=== PATIENT | female | born 1970 | race Hispanic/Latino ===

== ENCOUNTER 2018-01-12 20:09 | Emergency (ER) | payer MEDICAID ==
[~2018-01-12 20:09] MED LIST: DICL2100G TP; ESOM40CA PO; HYDR25TA PO; INSU300I SQ; LEVO25TA54 PO; LEVO500T2 PO; METR500T PO; NYST15OI TP; SAXA1TBM PO; SIMV40TA59 PO; TYL3 PO; [UNRECOGNIZED DRUG - CODE] IH
[2018-01-12 20:29] LABS: BASOPHILS % (AUTO) 1.2 % (0.0-5.0); HEMATOCRIT 44.4 % (36-48); LYMPHOCYTES % (AUTO) 34.5 % (21.0-51.0); MEAN CORPUSCULAR HEMOGLOBIN 30.6 pg (27.0-33.0); MEAN CORPUSCULAR HGB CONC 34.6 g/dL (32.0-36.0); MEAN CORPUSCULAR VOLUME 88.5 fL (79-99); MONOCYTES % (AUTO) 10.4 % (3.0-13.0); NEUTROPHILS % (AUTO) 51.9 % (40.0-77.0); PLATELET COUNT (AUTO) 278 K/uL (130-400); RED BLOOD CELL COUNT(AUTO) 5.02 MIL/uL (4.00-5.50); RED CELL DISTRIBUTION WIDTH 12.8 % (11.0-15.5)
[2018-01-12 20:32] LABS: APPEARANCE,URINE Clear (CLEAR); BILIRUBIN,URINE Negative (NEGATIVE); COLOR,URINE Yellow (YELLOW); GLUCOSE, URINE (UA) >=1000 mg/dL (NEGATIVE); KETONES,URINE Negative (NEGATIVE); LEUKOCYTE ESTERASE ,URINE Negative (NEGATIVE); NITRATE,URINE Negative (NEGATIVE); OCCULT BLOOD,URINE Trace (NEGATIVE); PH,URINE 6.5 (5.0-8.0); PROTEIN,URINE Negative (NEGATIVE)
[2018-01-12 20:41] LABS: INR 0.95 (0.85-1.15); PARTIAL THROMBOPLASTIN TIME 24.7 SEC (26.3-35.5)
[2018-01-12 20:52] LABS: ALANINE AMINOTRANSFERASE 43 U/L (12-78); ALBUMIN 3.1 g/dL (3.5-5.0); ASPARTATE AMINOTRANSFERASE 44 U/L (10-37); BILIRUBIN,TOTAL 0.4 mg/dL (0.2-1.0); CARBON DIOXIDE 27 mmol/L (21-32); CHLORIDE 97 mmol/L (101-111); CREATINE KINASE MB < 0.5 ng/mL (0.5-3.6); CREATINE KINASE, TOTAL 49 U/L (21-232); GLOMERULAR FILTR. RATE CALC 64 mL/min (>60); POTASSIUM 4.1 mmol/L (3.5-5.1); SODIUM SERUM 133 mmol/L (136-145); TOTAL PROTEIN, SERUM 8.2 g/dL (6.0-8.3); UREA NITROGEN, BLOOD 10 mg/dL (7-18)
[2018-01-12 20:56] LABS: GLUCOSE,RANDOM 537 mg/dL (70-105)
[2018-01-12] MEDS ORDERED: SODIUM CHLORIDE 0.9% 1000ML 1,000 ML IV ONE (21:17)
[2018-01-12] MEDS ORDERED: INSULIN HUMULIN R 100 UNIT/ML 3ML ONE (21:19)
[2018-01-12 21:25] LABS: BACTERIA,URINE Rare /HPF (None Seen); RBC,URINE None Seen /HPF (0-1)
[2018-01-12] MEDS ORDERED: BENZONATATE 100 MG CAPSULE PO ONE (23:17)
== END 2018-01-12 23:42 | disposition home or self-care (01) ==
LOC: EDH 20:09
DX: J20.9 Acute bronchitis, unspecified (principal); R07.89 Other chest pain; J45.909 Unspecified asthma, uncomplicated; E78.5 Hyperlipidemia, unspecified; I10 Essential (primary) hypertension; E07.9 Disorder of thyroid, unspecified; E11.9 Type 2 diabetes mellitus without complications; Z88.0 Allergy status to penicillin; Z79.4 Long term (current) use of insulin
CPT/HCPCS: 36415; 71046; 80053; 81001; 82550; 82553; 82948; 84484 ×2; 85025; 85610; 85730; 93005 ×2; 96360; 96361; 96374; 99285; J1815; J7030

== ENCOUNTER 2018-12-29 14:37 | Emergency (ER) | payer MEDICAID ==
[2018-12-29 15:08] LABS: BASOPHILS % (AUTO) 0.8 % (0.0-5.0); EOSINOPHILS % (AUTO) 0.4 % (0.0-8.0); HEMATOCRIT 43.4 % (36-48); LYMPHOCYTES % (AUTO) 20.9 % (21.0-51.0); MEAN CORPUSCULAR HEMOGLOBIN 30.3 pg (27.0-33.0); MEAN CORPUSCULAR HGB CONC 34.1 g/dL (32.0-36.0); MONOCYTES % (AUTO) 6.3 % (3.0-13.0); NEUTROPHILS % (AUTO) 71.6 % (40.0-77.0); PLATELET COUNT (AUTO) 258 K/uL (130-400); RED BLOOD CELL COUNT(AUTO) 4.88 MIL/uL (4.00-5.50); RED CELL DISTRIBUTION WIDTH 12.9 % (11.0-15.5)
[2018-12-29 15:13] LABS: APPEARANCE,URINE CLOUDY (CLEAR); BILIRUBIN,URINE NEGATIVE (NEGATIVE); COLOR,URINE YELLOW (YELLOW); GLUCOSE, URINE (UA) >=1000 mg/dL (NEGATIVE); KETONES,URINE NEGATIVE (NEGATIVE); LEUKOCYTE ESTERASE ,URINE SMALL (NEGATIVE); NITRATE,URINE NEGATIVE (NEGATIVE); OCCULT BLOOD,URINE TRACE-INTACT (NEGATIVE); PROTEIN,URINE NEGATIVE (NEGATIVE); UROBILINOGEN,URINE 0.2 mg/dL (0.2-1.0)
[2018-12-29 15:25] LABS: ALBUMIN 3.3 g/dL (3.5-5.0); BILIRUBIN,TOTAL 0.5 mg/dL (0.2-1.0); POTASSIUM 3.8 mmol/L (3.5-5.1); TOTAL PROTEIN, SERUM 8.3 g/dL (6.0-8.3)
[2018-12-29 15:46] LABS: BACTERIA,URINE Few /HPF (None Seen); WBC,URINE 51-100 /HPF (0-1)
[2018-12-29 15:47] LABS: SQUAMOUS EPITHELIAL CELL,UR Rare /HPF (0-2)
[2018-12-29] MEDS ORDERED: SODIUM CHLORIDE 0.9% 1000ML 1,000 ML IV ONE (15:55)
[2018-12-29] MEDS ORDERED: SODIUM CHLORIDE 0.9% 50 ML IV ONE (15:56)
[2018-12-29] MEDS ORDERED: INSULIN HUMULIN R 100 UNIT/ML 3ML ONE (15:56)
[2018-12-29] MEDS ORDERED: CEFTRIAXONE SODIUM 1 GM ONE (15:56)
[2018-12-29] MEDS ORDERED: PHENAZOPYRIDINE HCL 200 MG TABLET ONE (15:57)
== END 2018-12-29 17:59 | disposition home or self-care (01) ==
LOC: EDH 14:37
DX: N39.0 Urinary tract infection, site not specified (principal); E11.65 Type 2 diabetes mellitus with hyperglycemia; E78.5 Hyperlipidemia, unspecified; I10 Essential (primary) hypertension; J45.909 Unspecified asthma, uncomplicated; K21.9 Gastro-esophageal reflux disease without esophagitis; E07.9 Disorder of thyroid, unspecified; Z88.0 Allergy status to penicillin; Z87.891 Personal history of nicotine dependence; Z90.710 Acquired absence of both cervix and uterus
CPT/HCPCS: 36415; 80053; 81001; 82150; 82948; 83690; 85025; 96372; 96374; 99283; J0696; J1815; J7030

== ENCOUNTER 2021-03-16 19:38 | Emergency (ER) | payer MEDICAID ==
[2021-03-16 20:02] LABS: BASOPHILS % (AUTO) 0.3 % (0.0-5.0); EOSINOPHILS % (AUTO) 1.3 % (0.0-8.0); LYMPHOCYTES % (AUTO) 28.7 % (21.0-51.0); MEAN CORPUSCULAR HEMOGLOBIN 30.5 pg (27.0-33.0); MEAN CORPUSCULAR HGB CONC 34.1 g/dL (32.0-36.0); MEAN CORPUSCULAR VOLUME 89.3 fL (79-99); MONOCYTES % (AUTO) 6.6 % (3.0-13.0); NEUTROPHILS % (AUTO) 62.6 % (40.0-77.0); PLATELET COUNT (AUTO) 239 K/uL (130-400); RED BLOOD CELL COUNT(AUTO) 4.59 MIL/uL (4.00-5.50); RED CELL DISTRIBUTION WIDTH 12.2 % (11.0-15.5); WHITE BLOOD COUNT (AUTO) 12.1 K/uL (4.8-10.8)
[2021-03-16] MEDS ORDERED: ASPIRIN 325 MG TABLET ONE (20:06)
[2021-03-16 20:10] LABS: APPEARANCE,URINE Clear (CLEAR); BILIRUBIN,URINE Negative (NEGATIVE); COLOR,URINE Yellow (YELLOW); GLUCOSE, URINE (UA) >=1000 mg/dL (NEGATIVE); KETONES,URINE Negative (NEGATIVE); LEUKOCYTE ESTERASE ,URINE Negative (NEGATIVE); NITRATE,URINE Negative (NEGATIVE); OCCULT BLOOD,URINE Negative (NEGATIVE); PH,URINE 5.5 (5.0-8.0); PROTEIN,URINE Negative (NEGATIVE)
[2021-03-16 20:16] LABS: INR 0.99 (0.85-1.15); PROTHROMBIN TIME 10.8 SEC (9.6-11.6)
[2021-03-16 20:18] LABS: PARTIAL THROMBOPLASTIN TIME 23.3 SEC (26.3-35.5)
[2021-03-16 20:22] LABS: BACTERIA,URINE Rare /HPF (None Seen); RBC,URINE 0-1 /HPF (0-1); WBC,URINE 0-1 /HPF (0-1); YEAST,URINE BUDDING Rare /HPF (None Seen)
[2021-03-16 20:23] LABS: SQUAMOUS EPITHELIAL CELL,UR Few /HPF (0-2)
[2021-03-16 20:24] LABS: B-TYPE NATRIURETIC PEPTIDE 19 pg/mL (0-100)
[2021-03-16 20:34] LABS: ALBUMIN 2.9 g/dL (3.5-5.0); BILIRUBIN,TOTAL 0.2 mg/dL (0.2-1.0); POTASSIUM 3.8 mmol/L (3.5-5.1); TOTAL PROTEIN, SERUM 7.3 g/dL (6.0-8.3)
[2021-03-16] MEDS ORDERED: PANTOPRAZOLE 40 MG/VIAL ONE (21:26)
[2021-03-16] MEDS ORDERED: INSULIN HUMULIN R 100 UNIT/ML 3ML ONE (21:27)
[2021-03-16] MEDS ORDERED: FAMOTIDINE/PF 20 MG/2 ML VIAL IV ONE (21:27)
[2021-03-16] MEDS ORDERED: SODIUM CHLORIDE 0.9% 1000ML 1,000 ML IV ONE (21:29)
== END 2021-03-16 23:04 | disposition home or self-care (01) ==
LOC: EDH 19:38
DX: E11.65 Type 2 diabetes mellitus with hyperglycemia (principal); R07.89 Other chest pain; R10.13 Epigastric pain; R06.02 Shortness of breath; Z20.822 Contact with and (suspected) exposure to COVID-19; I10 Essential (primary) hypertension; E66.01 Morbid (severe) obesity due to excess calories; J45.909 Unspecified asthma, uncomplicated; K21.9 Gastro-esophageal reflux disease without esophagitis; Z88.0 Allergy status to penicillin; E07.9 Disorder of thyroid, unspecified; Z68.43 Body mass index [BMI] 50.0-59.9, adult
CPT/HCPCS: 36415; 71045; 80053; 81001; 82550; 82948; 83605; 83690; 83880; 84484 ×2; 85025; 85610; 85730; 87426; 93005; 96361; 96374; 96375; 99285; C9113; J1815; J3490; J7030; U0003

== ENCOUNTER 2021-06-04 11:51 | Emergency (ER) | payer MEDICAID ==
[2021-06-04 11:52] VITALS: BP 187/105
[2021-06-04] MEDS ORDERED: FAMOTIDINE 20MG VIAL IV SCH (12:00)
[2021-06-04] MEDS ORDERED: LIDOCAINE HCL 2% VISCOUS 15 ML UDCUP PO SCH (12:00)
[2021-06-04] MEDS ORDERED: MAG/ALUM/SIMETH 30 ML UDCUP PO SCH (12:00)
[2021-06-04] MEDS ORDERED: LIDOCAINE HCL 2% VISCOUS 15 ML UDCUP ONE (12:09)
[2021-06-04] MEDS ORDERED: MAG/ALUM/SIMETH 30 ML UDCUP ONE (12:09)
[2021-06-04 12:16] VITALS: BP 100/58
[2021-06-04 12:33] LABS: APPEARANCE,URINE Cloudy (CLEAR); BILIRUBIN,URINE Negative (NEGATIVE); COLOR,URINE Yellow (YELLOW); GLUCOSE, URINE (UA) 500 mg/dL (NEGATIVE); KETONES,URINE Negative (NEGATIVE); LEUKOCYTE ESTERASE ,URINE Negative (NEGATIVE); NITRATE,URINE Negative (NEGATIVE); OCCULT BLOOD,URINE Negative (NEGATIVE); PROTEIN,URINE Trace mg/dL (NEGATIVE)
[2021-06-04 12:34] LABS: BASOPHILS % (AUTO) 0.8 % (0.0-5.0); EOSINOPHILS % (AUTO) 1.8 % (0.0-8.0); HEMATOCRIT 43.9 % (36-48); MEAN CORPUSCULAR HEMOGLOBIN 30.1 pg (27.0-33.0); MEAN CORPUSCULAR HGB CONC 33.7 g/dL (32.0-36.0); MEAN CORPUSCULAR VOLUME 89.4 fL (79-99); MONOCYTES % (AUTO) 11.7 % (3.0-13.0); NEUTROPHILS % (AUTO) 46.9 % (40.0-77.0); PLATELET COUNT (AUTO) 215 K/uL (130-400); RED BLOOD CELL COUNT(AUTO) 4.91 MIL/uL (4.00-5.50); RED CELL DISTRIBUTION WIDTH 12.7 % (11.0-15.5); WHITE BLOOD COUNT (AUTO) 7.3 K/uL (4.8-10.8)
[2021-06-04 12:47] LABS: CREATININE 0.8 mg/dL (0.5-1.5); POTASSIUM 4.1 mmol/L (3.5-5.1)
[2021-06-04 12:51] LABS: ALBUMIN 3.1 g/dL (3.5-5.0); BILIRUBIN,TOTAL 0.3 mg/dL (0.2-1.0); TOTAL PROTEIN, SERUM 7.7 g/dL (6.0-8.3)
[2021-06-04 13:12] LABS: B-TYPE NATRIURETIC PEPTIDE 28 pg/mL (0-100)
[2021-06-04 13:15] LABS: BACTERIA,URINE Rare /HPF (None Seen); MUCUS,URINE Few LPF (None Seen); RBC,URINE 0-1 /HPF (0-1); SQUAMOUS EPITHELIAL CELL,UR Rare /HPF (0-2); WBC,URINE 0-1 /HPF (0-1); YEAST,URINE BUDDING Few /HPF (None Seen)
[2021-06-04] MEDS ORDERED: FAMO-136 PO (14:54)
[2021-06-04 15:20] VITALS: BP 147/74
== END 2021-06-04 15:18 | disposition home or self-care (01) ==
LOC: EDH 11:51
DX: U07.1 COVID-19 (principal); K21.9 Gastro-esophageal reflux disease without esophagitis; B34.9 Viral infection, unspecified; R07.89 Other chest pain; I10 Essential (primary) hypertension; I25.10 Atherosclerotic heart disease of native coronary artery without angina pectoris; E11.9 Type 2 diabetes mellitus without complications; Z86.73 Personal history of transient ischemic attack (TIA), and cerebral infarction without residual deficits; Z88.0 Allergy status to penicillin; Z79.4 Long term (current) use of insulin; Z79.899 Other long term (current) drug therapy
CPT/HCPCS: 36415; 71045; 80053; 81001; 81025; 83605; 83880; 84484 ×2; 85025; 86140; 87040 ×2; 87635; 87804 ×2; 87880; 93005; 96374; 99285; C9803; S0028; J3490

== ENCOUNTER 2022-07-26 17:16 | Emergency (ER) | payer MEDICAID ==
[~2022-07-26] VITALS: Ht 162.6 cm; Wt 157.9 kg
[~2022-07-26 17:16] MED LIST changes: +ACET-2247 PO; +CYCL10TA16 PO; +FAMO-136 PO; +NAPR-1180 PO; +ONDA4TAB10 PO
[2022-07-26 19:33] LABS: BASOPHILS % (AUTO) 0.7 % (0.0-5.0); EOSINOPHILS % (AUTO) 1.2 % (0.0-8.0); HEMATOCRIT 41.8 % (36-48); LYMPHOCYTES % (AUTO) 20.1 % (21.0-51.0); MEAN CORPUSCULAR HEMOGLOBIN 29.8 pg (27.0-33.0); MEAN CORPUSCULAR HGB CONC 33.7 g/dL (32.0-36.0); MEAN CORPUSCULAR VOLUME 88.4 fL (79-99); NEUTROPHILS % (AUTO) 67.3 % (40.0-77.0); PLATELET COUNT (AUTO) 227 K/uL (130-400); RED BLOOD CELL COUNT(AUTO) 4.73 MIL/uL (4.00-5.50); RED CELL DISTRIBUTION WIDTH 12.9 % (11.0-15.5); WHITE BLOOD COUNT (AUTO) 7.6 K/uL (4.8-10.8)
[2022-07-26 19:44] LABS: CREATININE 0.9 mg/dL (0.5-1.5); POTASSIUM 4.5 mmol/L (3.5-5.1)
[2022-07-26 19:53] LABS: ALBUMIN 3.1 g/dL (3.5-5.0); TOTAL PROTEIN, SERUM 7.7 g/dL (6.0-8.3)
[2022-07-26] MEDS ORDERED: 0.9%NACL 1000ML 1,000 ML IV ONE (20:00)
[2022-07-26] MEDS ORDERED: INSULIN HUMULIN R 100 UNIT/ML 3ML IV ONE (20:00)
[2022-07-26] MEDS ORDERED: ACET-66 PO (20:46)
[2022-07-26 20:59] VITALS: BP 124/67
== END 2022-07-26 21:00 | disposition home or self-care (01) ==
LOC: EDH 17:16
DX: E11.65 Type 2 diabetes mellitus with hyperglycemia (principal); B34.9 Viral infection, unspecified; Z20.822 Contact with and (suspected) exposure to COVID-19; I10 Essential (primary) hypertension; I25.10 Atherosclerotic heart disease of native coronary artery without angina pectoris; K21.9 Gastro-esophageal reflux disease without esophagitis; Z79.1 Long term (current) use of non-steroidal anti-inflammatories (NSAID); Z88.0 Allergy status to penicillin; Z79.4 Long term (current) use of insulin; Z79.899 Other long term (current) drug therapy; Z86.73 Personal history of transient ischemic attack (TIA), and cerebral infarction without residual deficits
CPT/HCPCS: 99285; 96374; 71045; 87635; 96361; 84484; 80053; 85025; 87804 ×2; 36415; 93005; J1815; C9803; J7030

== ENCOUNTER 2023-01-26 18:37 | Inpatient (IN) | payer MEDICAID ==
[~2023-01-26] VITALS: Ht 162.6 cm; Wt 159.3 kg
[~2023-01-26 18:37] MED LIST changes: +ACET-66 PO
[2023-01-26 18:55] LABS: BASOPHILS % (AUTO) 0.6 % (0.0-5.0); EOSINOPHILS % (AUTO) 1.6 % (0.0-8.0); HEMATOCRIT 42.4 % (36-48); LYMPHOCYTES % (AUTO) 35.4 % (21.0-51.0); MEAN CORPUSCULAR HEMOGLOBIN 30.1 pg (27.0-33.0); MEAN CORPUSCULAR HGB CONC 34.4 g/dL (32.0-36.0); MEAN CORPUSCULAR VOLUME 87.4 fL (79-99); MONOCYTES % (AUTO) 6.8 % (3.0-13.0); NEUTROPHILS % (AUTO) 55.1 % (40.0-77.0); PLATELET COUNT (AUTO) 236 K/uL (130-400); RED BLOOD CELL COUNT(AUTO) 4.85 MIL/uL (4.00-5.50); WHITE BLOOD COUNT (AUTO) 11.1 K/uL (4.8-10.8)
[2023-01-26] MEDS: ASPIRIN 325MG TAB PO ONE ×2 (19:02→19:08)
[2023-01-26 19:16] LABS: ALBUMIN 3.1 g/dL (3.5-5.0); CREATININE 1.1 mg/dL (0.5-1.5); POTASSIUM 4.3 mmol/L (3.5-5.1); TOTAL PROTEIN, SERUM 7.5 g/dL (6.0-8.3)
[2023-01-26 19:18] LABS: AMYLASE 31 U/L (25-115); LIPASE 126 U/L (114-286)
[2023-01-26] MEDS ORDERED: INSULIN HUMULIN R 100 UNIT/ML 3ML SQ ONE ×2 (19:30→21:30)
[2023-01-26 20:57] LABS: APPEARANCE,URINE CLEAR (CLEAR); BILIRUBIN,URINE NEGATIVE (NEGATIVE); COLOR,URINE YELLOW (YELLOW); GLUCOSE, URINE (UA) >=1000 mg/dL (NEGATIVE); KETONES,URINE 5 mg/dL (NEGATIVE); LEUKOCYTE ESTERASE ,URINE NEGATIVE Leu/uL (NEGATIVE); NITRATE,URINE NEGATIVE (NEGATIVE); OCCULT BLOOD,URINE NEGATIVE (NEGATIVE); PH,URINE 5.5 (5.0-8.0); PROTEIN,URINE 20 mg/dL (NEGATIVE); UROBILINOGEN,URINE 3 mg/dL (0.2-1.0)
[2023-01-26] MEDS ORDERED: HYDR25TA PO (21:06)
[2023-01-26] MEDS ORDERED: METO-409 PO (21:06)
[2023-01-26] MEDS ORDERED: GABA600T10 PO (21:06)
[2023-01-26] MEDS ORDERED: NAPR-1023 PO (21:06)
[2023-01-26] MEDS ORDERED: GLYB-173 PO (21:06)
[2023-01-26] MEDS ORDERED: HYDR-3421 PO (21:06)
[2023-01-26] MEDS ORDERED: TRAZ-185 PO (21:06)
[2023-01-26] MEDS ORDERED: LISI1TAB53 PO (21:06)
[2023-01-26 21:19] LABS: BACTERIA,URINE RARE /HPF (None Seen); MUCUS,URINE FEW LPF (None Seen); SQUAMOUS EPITHELIAL CELL,UR FEW /HPF (0-2); YEAST,URINE BUDDING MOD /HPF (None Seen)
[2023-01-27 07:38] LABS: BASOPHILS % (AUTO) 0.7 % (0.0-5.0); EOSINOPHILS % (AUTO) 2.6 % (0.0-8.0); HEMATOCRIT 39.5 % (36-48); LYMPHOCYTES % (AUTO) 40.3 % (21.0-51.0); MEAN CORPUSCULAR HEMOGLOBIN 30.2 pg (27.0-33.0); MEAN CORPUSCULAR HGB CONC 34.4 g/dL (32.0-36.0); MEAN CORPUSCULAR VOLUME 87.6 fL (79-99); PLATELET COUNT (AUTO) 219 K/uL (130-400); RED BLOOD CELL COUNT(AUTO) 4.51 MIL/uL (4.00-5.50); RED CELL DISTRIBUTION WIDTH 12.1 % (11.0-15.5)
[2023-01-27 07:59] LABS: ALBUMIN 2.7 g/dL (3.5-5.0); CREATININE 0.8 mg/dL (0.5-1.5); POTASSIUM 4.1 mmol/L (3.5-5.1); TOTAL PROTEIN, SERUM 6.4 g/dL (6.0-8.3)
[2023-01-27] MEDS ORDERED: GLUCAGON 1MG KIT 1 MG ML IM PRN (08:30)
[2023-01-27] MEDS ORDERED: DEXTROSE 50%-WATER 50 ML DISP.SYRIN IV PRN (08:30)
[2023-01-27 08:40] VITALS: BP 143/76
[2023-01-27] MEDS: ASPIRIN 81MG CHEW TAB PO SCH (09:00)
[2023-01-27] MEDS ORDERED: REGADENOSON 0.4 MG/5 ML PF SYG IVP SCH (09:30)
[2023-01-27] MEDS: 1/2 NS 1000ML 1,000 ML IV SCH ×3 (09:40→21:50)
[2023-01-27] MEDS: INSULIN HUMULIN R 100 UNIT/ML 3ML SQ SCH ×4 (11:30→23:54)
[2023-01-27 11:46] VITALS: BP 143/81
[2023-01-27 16:00] VITALS: BP 123/66
[2023-01-27] MEDS: INSULIN GLARGINE 100 UNITS/ML 10 ML VIAL SQ SCH (20:23)
[2023-01-27 20:24] VITALS: BP 161/84
[2023-01-27] MEDS ORDERED: INSULIN GLARGINE 100 UNITS/ML 10 ML VIAL SQ ONE (23:00)
[2023-01-27 23:52] VITALS: BP 125/50
[2023-01-28] MEDS ORDERED: ACETAMINOPHEN 500 MG TABLET PO PRN
[2023-01-28 04:15] VITALS: BP 121/62
[2023-01-28] MEDS: INSULIN HUMULIN R 100 UNIT/ML 3ML SQ SCH ×3 (04:44→12:00)
[2023-01-28] MEDS: 1/2 NS 1000ML 1,000 ML IV SCH ×2 (04:48→09:08)
[2023-01-28 08:00] VITALS: BP 134/72
[2023-01-28] MEDS: INSULIN GLARGINE 100 UNITS/ML 10 ML VIAL SQ SCH (08:06)
[2023-01-28] MEDS: ASPIRIN 81MG CHEW TAB PO SCH (09:00)
[2023-01-28 11:00] VITALS: BP 116/59
== END 2023-01-28 15:30 | disposition home or self-care (01) | DRG 203 ==
LOC: EDH 18:37 → EDHIP 18:38 → 3BH 01-27 08:40
PROVIDERS: ADMIT Internal Medicine; ATTEND Internal Medicine
DX: R07.89 Other chest pain (principal); Z68.44 Body mass index [BMI] 60.0-69.9, adult; E03.9 Hypothyroidism, unspecified; E66.9 Obesity, unspecified; E11.65 Type 2 diabetes mellitus with hyperglycemia; I10 Essential (primary) hypertension; E78.5 Hyperlipidemia, unspecified; J45.909 Unspecified asthma, uncomplicated; Z90.710 Acquired absence of both cervix and uterus; Z79.4 Long term (current) use of insulin; Z86.73 Personal history of transient ischemic attack (TIA), and cerebral infarction without residual deficits; Z79.899 Other long term (current) drug therapy
CPT/HCPCS: 36415; 71045; 78452; 80053; 81001; 82150; 82550; 82948; 83690; 83874; 83880; 84484; 85025; 93005; 93017; 96374; A9500; G0378; J1815; J2785

== ENCOUNTER 2023-04-23 22:02 | Emergency (ER) | payer MEDICAID ==
[~2023-04-23] VITALS: Ht 162.6 cm; Wt 154.2 kg
[~2023-04-23 22:02] MED LIST changes: -ACET-2247 PO; -ACET-66 PO; -CYCL10TA16 PO; -DICL2100G TP; -ESOM40CA PO; -FAMO-136 PO; +GABA600T10 PO; +GLYB-173 PO; +HYDR-3421 PO; -INSU300I SQ; -LEVO500T2 PO; +LISI1TAB53 PO; +METO-409 PO; -METR500T PO; +NAPR-1023 PO; -NAPR-1180 PO; -NYST15OI TP; -ONDA4TAB10 PO; -SAXA1TBM PO; +TRAZ-185 PO; -TYL3 PO; -[UNRECOGNIZED DRUG - CODE] IH
[2023-04-23] MEDS ORDERED: KETOROLAC 60 MG VIAL (30MG/ML) IM ONE (23:00)
[2023-04-23] MEDS ORDERED: ONDANSETRON 4MG INJ IVP ONE (23:00)
[2023-04-23 23:14] LABS: BASOPHILS % (AUTO) 0.6 % (0.0-5.0); HEMATOCRIT 42.2 % (36-48); LYMPHOCYTES % (AUTO) 41.5 % (21.0-51.0); MEAN CORPUSCULAR HEMOGLOBIN 29.5 pg (27.0-33.0); MEAN CORPUSCULAR HGB CONC 33.6 g/dL (32.0-36.0); MEAN CORPUSCULAR VOLUME 87.6 fL (79-99); MONOCYTES % (AUTO) 7.4 % (3.0-13.0); PLATELET COUNT (AUTO) 235 K/uL (130-400); RED BLOOD CELL COUNT(AUTO) 4.82 MIL/uL (4.00-5.50); RED CELL DISTRIBUTION WIDTH 12.2 % (11.0-15.5); WHITE BLOOD COUNT (AUTO) 8.1 K/uL (4.8-10.8)
[2023-04-23 23:19] LABS: APPEARANCE,URINE CLEAR (CLEAR); BILIRUBIN,URINE NEGATIVE (NEGATIVE); COLOR,URINE COLORLESS (YELLOW); GLUCOSE, URINE (UA) >=1000 mg/dL (NEGATIVE); KETONES,URINE NEGATIVE (NEGATIVE); LEUKOCYTE ESTERASE ,URINE NEGATIVE Leu/uL (NEGATIVE); NITRATE,URINE NEGATIVE (NEGATIVE); OCCULT BLOOD,URINE NEGATIVE (NEGATIVE); PH,URINE 5.5 (5.0-8.0); PROTEIN,URINE NEGATIVE (NEGATIVE); UROBILINOGEN,URINE 0.2 mg/dL (0.2-1.0)
[2023-04-23 23:37] LABS: ALBUMIN 3.1 g/dL (3.5-5.0); POTASSIUM 3.8 mmol/L (3.5-5.1); TOTAL PROTEIN, SERUM 7.4 g/dL (6.0-8.3)
[2023-04-23 23:46] LABS: BACTERIA,URINE None Seen /HPF (None Seen); RBC,URINE 0-1 /HPF (0-1); WBC,URINE 0-1 /HPF (0-1)
[2023-04-23 23:47] LABS: SQUAMOUS EPITHELIAL CELL,UR Few /HPF (0-2); YEAST,URINE BUDDING Few /HPF (None Seen)
[2023-04-24] MEDS ORDERED: 0.9%NACL 1000ML 2,000 ML IV ONE
[2023-04-24] MEDS ORDERED: INSULIN LISPRO 100 UNIT/ML 3ML SQ ONE
[2023-04-24] MEDS ORDERED: IOHEXOL 350 MG/ML 100ML INFUS..BTL IV ONE (01:03)
[2023-04-24] MEDS ORDERED: IBUP-1493 PO (02:34)
[2023-04-24] MEDS ORDERED: OMEP40CA21 PO (02:34)
[2023-04-24 02:41] VITALS: BP 138/64
== END 2023-04-24 02:52 | disposition home or self-care (01) ==
LOC: EDH 22:08
DX: R10.9 Unspecified abdominal pain (principal); I10 Essential (primary) hypertension; E11.9 Type 2 diabetes mellitus without complications; E03.9 Hypothyroidism, unspecified; J45.909 Unspecified asthma, uncomplicated; F41.9 Anxiety disorder, unspecified; E78.5 Hyperlipidemia, unspecified; Z90.710 Acquired absence of both cervix and uterus; Z88.0 Allergy status to penicillin; Z88.8 Allergy status to other drugs, medicaments and biological substances; Z79.4 Long term (current) use of insulin; Z79.899 Other long term (current) drug therapy
CPT/HCPCS: 99285; 96374; 76705; 71045; 82150; 84484; 80053; 83690; 85025; 81001; 36415; 96372 ×2; 74177; J7030; J2405; J1885; Q9967

== ENCOUNTER 2023-05-28 23:34 | Emergency (ER) | payer MEDICAID ==
[~2023-05-28] VITALS: Ht 162.6 cm; Wt 156.5 kg
[~2023-05-28 23:34] MED LIST changes: +GABA300C PO; -GABA600T10 PO; -HYDR25TA PO; -LEVO25TA54 PO; -LISI1TAB53 PO; +LISI40TA9 PO; -SIMV40TA59 PO
[2023-05-29] MEDS ORDERED: LACTATED RINGERS 1000ML 1,000 ML IV ONE
[2023-05-29 00:27] LABS: INR 0.93 (0.85-1.15); PROTHROMBIN TIME 10.1 SEC (9.6-11.6)
[2023-05-29 00:28] LABS: PARTIAL THROMBOPLASTIN TIME 26.3 SEC (26.3-35.5)
[2023-05-29 00:29] LABS: BASOPHILS % (AUTO) 0.5 % (0.0-5.0); LYMPHOCYTES % (AUTO) 36.5 % (21.0-51.0); MEAN CORPUSCULAR HEMOGLOBIN 29.9 pg (27.0-33.0); MEAN CORPUSCULAR HGB CONC 34.1 g/dL (32.0-36.0); MEAN CORPUSCULAR VOLUME 87.6 fL (79-99); MONOCYTES % (AUTO) 6.1 % (3.0-13.0); NEUTROPHILS % (AUTO) 54.4 % (40.0-77.0); PLATELET COUNT (AUTO) 270 K/uL (130-400); RED BLOOD CELL COUNT(AUTO) 5.25 MIL/uL (4.00-5.50); RED CELL DISTRIBUTION WIDTH 12.5 % (11.0-15.5); WHITE BLOOD COUNT (AUTO) 10.1 K/uL (4.8-10.8)
[2023-05-29 00:36] LABS: ALBUMIN 3.1 g/dL (3.5-5.0); CREATININE 1.1 mg/dL (0.5-1.5); MAGNESIUM 1.6 mg/dL (1.80-2.40); POTASSIUM 4.3 mmol/L (3.5-5.1); TOTAL PROTEIN, SERUM 7.9 g/dL (6.0-8.3)
[2023-05-29 00:45] LABS: APPEARANCE,URINE CLEAR (CLEAR); BILIRUBIN,URINE NEGATIVE (NEGATIVE); COLOR,URINE LIGHT-YELLOW (YELLOW); GLUCOSE, URINE (UA) >=1000 mg/dL (NEGATIVE); KETONES,URINE NEGATIVE (NEGATIVE); LEUKOCYTE ESTERASE ,URINE NEGATIVE Leu/uL (NEGATIVE); NITRATE,URINE NEGATIVE (NEGATIVE); OCCULT BLOOD,URINE NEGATIVE (NEGATIVE); PH,URINE 5.5 (5.0-8.0); PROTEIN,URINE NEGATIVE (NEGATIVE); UROBILINOGEN,URINE 0.2 mg/dL (0.2-1.0)
[2023-05-29 00:48] LABS: BACTERIA,URINE RARE /HPF (None Seen); MUCUS,URINE RARE LPF (None Seen); SQUAMOUS EPITHELIAL CELL,UR MOD /HPF (0-2)
[2023-05-29 00:55] LABS: B-TYPE NATRIURETIC PEPTIDE 12 pg/mL (0-100)
[2023-05-29] MEDS ORDERED: MECL-262 PO (01:40)
[2023-05-29] MEDS ORDERED: LACTATED RINGERS 1000ML IV SCH (02:00)
[2023-05-29] MEDS ORDERED: MECLIZINE HCL 25 MG TABLET PO ONE (02:00)
[2023-05-29] MEDS ORDERED: INSULIN LISPRO 100 UNIT/ML 3ML SQ ONE (02:30)
[2023-05-29 04:13] VITALS: BP 112/54; PULSE 78; RESP 16; O2SAT 97
== END 2023-05-29 04:21 | disposition home or self-care (01) ==
LOC: EDH 23:34
DX: H81.10 Benign paroxysmal vertigo, unspecified ear (principal); E11.65 Type 2 diabetes mellitus with hyperglycemia; E78.00 Pure hypercholesterolemia, unspecified; J45.909 Unspecified asthma, uncomplicated; I10 Essential (primary) hypertension; Z79.4 Long term (current) use of insulin; Z79.84 Long term (current) use of oral hypoglycemic drugs; Z79.899 Other long term (current) drug therapy; Z88.0 Allergy status to penicillin; Z90.49 Acquired absence of other specified parts of digestive tract
CPT/HCPCS: 36415; 71045; 80053; 80061; 81001; 82550; 82948; 83735; 83874; 83880; 84484; 85025; 85378; 85610; 85730; 87077; 87088; 87186; 93005; 96360; 96361; 96372

== ENCOUNTER 2023-09-24 14:22 | Emergency (ER) | payer MEDICAID ==
[~2023-09-24] VITALS: Ht 162.6 cm; Wt 156.9 kg
[~2023-09-24 14:22] MED LIST changes: +MECL-262 PO
[2023-09-24 14:40] LABS: BASOPHILS # (AUTO) 0.09 K/uL (0.00-0.20); BASOPHILS % (AUTO) 0.9 % (0.0-5.0); EOSINOPHILS # (AUTO) 0.14 K/uL (0.00-0.70); EOSINOPHILS % (AUTO) 1.5 % (0.0-8.0); HEMATOCRIT 45.7 % (36-48); IMMATURE GRANULOCYTE ABSOLUTE 0.04 K/uL (0-1); LYMPHOCYTES # (AUTO) 3.6 K/uL (1.0-4.8); LYMPHOCYTES % (AUTO) 37.9 % (21.0-51.0); MEAN CORPUSCULAR HEMOGLOBIN 30.4 pg (27.0-33.0); MEAN CORPUSCULAR VOLUME 86.7 fL (79-99); MONOCYTES # (AUTO) 0.5 K/uL (0.1-1.0); MONOCYTES % (AUTO) 5.4 % (3.0-13.0); NEUTROPHILS # (AUTO) 5.2 K/uL (1.8-7.7); NEUTROPHILS % (AUTO) 53.9 % (40.0-77.0); PLATELET COUNT (AUTO) 275 K/uL (130-400); RED BLOOD CELL COUNT(AUTO) 5.27 MIL/uL (4.00-5.50); RED CELL DISTRIBUTION WIDTH 12.6 % (11.0-15.5); WHITE BLOOD COUNT (AUTO) 9.6 K/uL (4.8-10.8)
[2023-09-24 14:53] LABS: CREATININE 0.8 mg/dL (0.5-1.5)
[2023-09-24 15:15] LABS: B-TYPE NATRIURETIC PEPTIDE 7 pg/mL (0-100)
[2023-09-24] MEDS ORDERED: BENZONATATE 100 MG CAPSULE PO ONE (17:00)
[2023-09-24] MEDS ORDERED: ALBUHFA IH (17:00)
[2023-09-24] MEDS ORDERED: BENZ-39 PO (17:00)
[2023-09-24] MEDS ORDERED: ALBUTEROL 0.083% 2.5 MG/3 ML INH IH ONE (17:00)
[2023-09-24 17:18] VITALS: PULSE 80; RESP 18
[2023-09-24 17:56] VITALS: BP 137/75; PULSE 89; RESP 22; O2SAT 98
== END 2023-09-24 17:58 | disposition home or self-care (01) ==
LOC: EDH 14:22
DX: R05.9 Cough, unspecified (principal); G47.30 Sleep apnea, unspecified; J45.909 Unspecified asthma, uncomplicated; E11.9 Type 2 diabetes mellitus without complications; E78.00 Pure hypercholesterolemia, unspecified; I11.9 Hypertensive heart disease without heart failure; Z79.4 Long term (current) use of insulin; Z79.84 Long term (current) use of oral hypoglycemic drugs; Z79.899 Other long term (current) drug therapy; Z88.0 Allergy status to penicillin; Z90.49 Acquired absence of other specified parts of digestive tract
CPT/HCPCS: 36415; 71045; 80048; 83880; 84484; 85025; 93005; 94640

== ENCOUNTER 2024-02-16 14:58 | Emergency (ER) | payer MEDICAID ==
[~2024-02-16] VITALS: Ht 162.6 cm; Wt 150.1 kg
[~2024-02-16 14:58] MED LIST changes: +ALBUHFA IH; +BENZ-39 PO
[2024-02-16 15:53] LABS: BASOPHILS # (AUTO) 0.05 K/uL (0.00-0.20); BASOPHILS % (AUTO) 0.5 % (0.0-5.0); HEMATOCRIT 41.4 % (36-48); IMMATURE GRANULOCYTE ABSOLUTE 0.05 K/uL (0-1); LYMPHOCYTES # (AUTO) 2.8 K/uL (1.0-4.8); LYMPHOCYTES % (AUTO) 27.6 % (21.0-51.0); MEAN CORPUSCULAR HEMOGLOBIN 29.7 pg (27.0-33.0); MEAN CORPUSCULAR HGB CONC 34.8 g/dL (32.0-36.0); MEAN CORPUSCULAR VOLUME 85.4 fL (79-99); MONOCYTES # (AUTO) 0.7 K/uL (0.1-1.0); MONOCYTES % (AUTO) 6.9 % (3.0-13.0); NEUTROPHILS # (AUTO) 6.2 K/uL (1.8-7.7); NEUTROPHILS % (AUTO) 62.5 % (40.0-77.0); PLATELET COUNT (AUTO) 243 K/uL (130-400); RED BLOOD CELL COUNT(AUTO) 4.85 MIL/uL (4.00-5.50); RED CELL DISTRIBUTION WIDTH 12.4 % (11.0-15.5)
[2024-02-16 16:02] LABS: ALBUMIN 2.9 g/dL (3.5-5.0); BILIRUBIN,TOTAL 0.5 mg/dL (0.2-1.0); CREATININE 0.9 mg/dL (0.5-1.0); POTASSIUM 4.3 mmol/L (3.5-5.1); TOTAL PROTEIN, SERUM 7.2 g/dL (6.0-8.3)
[2024-02-16] MEDS: INSULIN HUMULIN R 100 UNIT/ML 3ML SQ ONE (18:20)
[2024-02-16 18:28] VITALS: BP 132/74; PULSE 88; RESP 20; O2SAT 99
== END 2024-02-16 18:29 | disposition home or self-care (01) ==
LOC: EDH 14:58
DX: R07.89 Other chest pain (principal); E11.65 Type 2 diabetes mellitus with hyperglycemia; I10 Essential (primary) hypertension; E78.00 Pure hypercholesterolemia, unspecified; J45.909 Unspecified asthma, uncomplicated; Z79.84 Long term (current) use of oral hypoglycemic drugs; Z79.899 Other long term (current) drug therapy; Z90.49 Acquired absence of other specified parts of digestive tract; Z98.890 Other specified postprocedural states; Z90.710 Acquired absence of both cervix and uterus; Z88.0 Allergy status to penicillin; Z88.8 Allergy status to other drugs, medicaments and biological substances
CPT/HCPCS: 99285; 71045; 84484 ×2; 80053; 85025; 36415; 96372; 93005; J1815

== ENCOUNTER 2024-05-21 04:57 | Inpatient (IN) | payer MEDICAID ==
[~2024-05-21] VITALS: Ht 162.6 cm; Wt 159.0 kg
[2024-05-21] MEDS: CLINDAMYCIN IVPB 300MG/50ML 50 ML IV SCH (05:49)
[2024-05-21 06:09] LABS: BASOPHILS # (AUTO) 0.06 K/uL (0.00-0.20); BASOPHILS % (AUTO) 0.5 % (0.0-5.0); EOSINOPHILS # (AUTO) 0.22 K/uL (0.00-0.70); EOSINOPHILS % (AUTO) 1.8 % (0.0-8.0); HEMATOCRIT 41.6 % (36-48); IMMATURE GRANULOCYTE ABSOLUTE 0.06 K/uL (0-1); LYMPHOCYTES # (AUTO) 2.7 K/uL (1.0-4.8); LYMPHOCYTES % (AUTO) 22.5 % (21.0-51.0); MEAN CORPUSCULAR HEMOGLOBIN 29.5 pg (27.0-33.0); MEAN CORPUSCULAR HGB CONC 33.4 g/dL (32.0-36.0); MEAN CORPUSCULAR VOLUME 88.3 fL (79-99); MONOCYTES % (AUTO) 8.4 % (3.0-13.0); NEUTROPHILS % (AUTO) 66.3 % (40.0-77.0); PLATELET COUNT (AUTO) 230 K/uL (130-400); RED BLOOD CELL COUNT(AUTO) 4.71 MIL/uL (4.00-5.50); RED CELL DISTRIBUTION WIDTH 12.7 % (11.0-15.5); WHITE BLOOD COUNT (AUTO) 12.1 K/uL (4.8-10.8)
[2024-05-21 06:19] LABS: ALBUMIN 2.8 g/dL (3.5-5.0); BILIRUBIN,TOTAL 0.5 mg/dL (0.2-1.0); CREATININE 0.8 mg/dL (0.5-1.0); POTASSIUM 4.3 mmol/L (3.5-5.1); TOTAL PROTEIN, SERUM 7.4 g/dL (6.0-8.3)
[2024-05-21] MEDS: INSULIN HUMULIN R 100 UNIT/ML 3ML IV ONE (06:37)
[2024-05-21] MEDS: LACTATED RINGERS 1000ML 1,000 ML IV ONE (06:42)
[2024-05-21 06:57] LABS: APPEARANCE,URINE CLEAR (CLEAR); BILIRUBIN,URINE NEGATIVE (NEGATIVE); COLOR,URINE LIGHT-YELLOW (YELLOW); GLUCOSE, URINE (UA) >=1000 mg/dL (NEGATIVE); KETONES,URINE NEGATIVE (NEGATIVE); LEUKOCYTE ESTERASE ,URINE NEGATIVE Leu/uL (NEGATIVE); NITRATE,URINE NEGATIVE (NEGATIVE); OCCULT BLOOD,URINE NEGATIVE (NEGATIVE); PH,URINE 5.5 (5.0-8.0); PROTEIN,URINE NEGATIVE (NEGATIVE); UROBILINOGEN,URINE 0.2 mg/dL (0.2-1.0)
[2024-05-21 07:00] LABS: ADD UA MICROSCOPIC YES
[2024-05-21 07:19] LABS: BACTERIA,URINE RARE /HPF (None Seen); MUCUS,URINE RARE LPF (None Seen); SQUAMOUS EPITHELIAL CELL,UR RARE /HPF (0-2)
[2024-05-21] MEDS: AZTREONAM 1 GM VIAL IVPB SCH (07:50)
[2024-05-21] MEDS: VANCOMYCIN KIT 1 GM/250 ML IV.KIT IV ONE (07:50)
[2024-05-21] MEDS ORDERED: VANCOMYCIN PROTOCOL PER PHARMACY IV SCH (08:30)
[2024-05-21] MEDS ORDERED: ZOSYN 3.375GM +NS 50ML IV SCH (10:30)
[2024-05-21] MEDS: LEVOFLOXACIN 750 MG TABLET PO SCH (12:01)
[2024-05-21] MEDS: ENOXAPARIN SODIUM 30 MG/0.3 ML SQ SCH (12:02)
[2024-05-21] MEDS: HYDROMORPHONE 0.5 MG SYG (0.5MG/0.5ML) IVP PRN (12:03)
[2024-05-21] MEDS: VANCOMYCIN 1G/250ML KIT 250 ML IV SCH (15:58)
[2024-05-21] MEDS ORDERED: NAPROXEN 500 MG TABLET PO PRN (16:00)
[2024-05-21] MEDS ORDERED: HYDROXYZINE 25 MG TABLET PO PRN (16:00)
[2024-05-21] MEDS: INSULIN HUMULIN R 100 UNIT/ML 3ML SQ SCH (17:02)
[2024-05-21 18:00] VITALS: BP 149/74; PULSE 79; RESP 18; O2SAT 98
[2024-05-21 19:20] VITALS: O2SAT 98
[2024-05-21 20:00] VITALS: BP 100/40; PULSE 75; RESP 19
[2024-05-21] MEDS: GLYBURIDE/METFORMIN HCL 5/500MG TABLET PO SCH (21:00)
[2024-05-21] MEDS: LISINOPRIL 40 MG TABLET PO SCH (21:06)
[2024-05-21] MEDS: GABAPENTIN 300 MG CAPSULE PO SCH (21:06)
[2024-05-21] MEDS: TRAZODONE HCL 50 MG TAB PO SCH (21:06)
[2024-05-21 23:59] VITALS: BP 111/63; PULSE 79; RESP 18
[2024-05-22] VITALS (8 sets, daily range): BP systolic 91–139; BP diastolic 46–80; PULSE 83–98; RESP 16–18; O2SAT 95–98
[2024-05-22 07:00] LABS: BASOPHILS # (AUTO) 0.07 K/uL (0.00-0.20); BASOPHILS % (AUTO) 0.7 % (0.0-5.0); EOSINOPHILS # (AUTO) 0.23 K/uL (0.00-0.70); EOSINOPHILS % (AUTO) 2.2 % (0.0-8.0); HEMATOCRIT 37.7 % (36-48); IMMATURE GRANULOCYTE ABSOLUTE 0.04 K/uL (0-1); LYMPHOCYTES # (AUTO) 2.6 K/uL (1.0-4.8); LYMPHOCYTES % (AUTO) 25.1 % (21.0-51.0); MEAN CORPUSCULAR HEMOGLOBIN 29.5 pg (27.0-33.0); MEAN CORPUSCULAR VOLUME 86.9 fL (79-99); MONOCYTES # (AUTO) 0.8 K/uL (0.1-1.0); MONOCYTES % (AUTO) 7.3 % (3.0-13.0); NEUTROPHILS # (AUTO) 6.6 K/uL (1.8-7.7); NEUTROPHILS % (AUTO) 64.3 % (40.0-77.0); PLATELET COUNT (AUTO) 238 K/uL (130-400); RED BLOOD CELL COUNT(AUTO) 4.34 MIL/uL (4.00-5.50); RED CELL DISTRIBUTION WIDTH 12.9 % (11.0-15.5); WHITE BLOOD COUNT (AUTO) 10.3 K/uL (4.8-10.8)
[2024-05-22] MEDS: METOPROLOL SUCCINATE 50 MG TAB.SR.24H PO SCH (09:00)
[2024-05-23 03:00] VITALS: BP 91/42; PULSE 91; RESP 16
[2024-05-23 08:00] VITALS: BP 134/61; PULSE 96; RESP 18; O2SAT 98
[2024-05-23] MEDS: CEFAZOLIN SODIUM 1 GM VIAL IVPB SCH (11:51)
[2024-05-23 11:59] VITALS: BP 153/75; PULSE 94; RESP 20
[2024-05-23 16:00] VITALS: BP 151/64; PULSE 92; RESP 20
[2024-05-23 16:12] LABS: CREATININE 0.9 mg/dL (0.5-1.0)
[2024-05-23 19:30] VITALS: O2SAT 99
[2024-05-23 19:44] VITALS: BP 142/65; PULSE 90; RESP 18
[2024-05-24] MEDS ORDERED: VANCOMYCIN 1.25 GM/250 ML BAG 250 ML IV SCH (16:00)
== END 2024-05-23 20:14 | disposition home or self-care (01) | DRG 197 ==
LOC: EDH 04:57 → EDHIP 04:58 → 3AH 18:00
PROVIDERS: ADMIT Internal Medicine; ATTEND Internal Medicine
PROC: 0HBRXZZ Excision of Toe Nail, External Approach (ICD-10-PCS; principal; 2024-05-21)
PROC: 0HBRXZZ Excision of Toe Nail, External Approach (ICD-10-PCS; 2024-05-21)
PROC: 0HBRXZZ Excision of Toe Nail, External Approach (ICD-10-PCS; 2024-05-21)
PROC: 0HBRXZZ Excision of Toe Nail, External Approach (ICD-10-PCS; 2024-05-21)
PROC: 0HBRXZZ Excision of Toe Nail, External Approach (ICD-10-PCS; 2024-05-21)
PROC: 0HBRXZZ Excision of Toe Nail, External Approach (ICD-10-PCS; 2024-05-21)
PROC: 0HBRXZZ Excision of Toe Nail, External Approach (ICD-10-PCS; 2024-05-21)
PROC: 0HBRXZZ Excision of Toe Nail, External Approach (ICD-10-PCS; 2024-05-21)
PROC: 0HBRXZZ Excision of Toe Nail, External Approach (ICD-10-PCS; 2024-05-21)
PROC: 0HBRXZZ Excision of Toe Nail, External Approach (ICD-10-PCS; 2024-05-21)
DX: E11.51 Type 2 diabetes mellitus with diabetic peripheral angiopathy without gangrene (principal); L03.116 Cellulitis of left lower limb; E11.621 Type 2 diabetes mellitus with foot ulcer; L97.529 Non-pressure chronic ulcer of other part of left foot with unspecified severity; M86.8X8 Other osteomyelitis, other site; Z68.44 Body mass index [BMI] 60.0-69.9, adult; E11.42 Type 2 diabetes mellitus with diabetic polyneuropathy; E11.69 Type 2 diabetes mellitus with other specified complication; I10 Essential (primary) hypertension; E66.01 Morbid (severe) obesity due to excess calories; E11.65 Type 2 diabetes mellitus with hyperglycemia; E78.00 Pure hypercholesterolemia, unspecified; J45.909 Unspecified asthma, uncomplicated; L84 Corns and callosities; Z79.4 Long term (current) use of insulin; Z86.73 Personal history of transient ischemic attack (TIA), and cerebral infarction without residual deficits; Z90.710 Acquired absence of both cervix and uterus; Z88.0 Allergy status to penicillin; Z88.8 Allergy status to other drugs, medicaments and biological substances; Z90.49 Acquired absence of other specified parts of digestive tract
CPT/HCPCS: 36415; 73630; 73718; 80053; 80202; 81001; 82565; 82948; 83036; 85025; 87070; 87076; 87086; 87186; 93925; G0378; J0690; J1170; J1650; J1815; J3370; J3490; L3260

== ENCOUNTER → 2024-06-28 | Outpatient (CLI) | payer MEDICAID ==
[~2024-06-28] MED LIST changes: -ALBUHFA IH; -BENZ-39 PO; +IBUP-2070 PO; -MECL-262 PO
[2024-06-28 08:05] LABS: BASOPHILS # (AUTO) 0.06 K/uL (0.00-0.20); BASOPHILS % (AUTO) 0.6 % (0.0-5.0); EOSINOPHILS # (AUTO) 0.24 K/uL (0.00-0.70); EOSINOPHILS % (AUTO) 2.3 % (0.0-8.0); HEMATOCRIT 42.4 % (36-48); IMMATURE GRANULOCYTE ABSOLUTE 0.05 K/uL (0-1); LYMPHOCYTES # (AUTO) 3.4 K/uL (1.0-4.8); LYMPHOCYTES % (AUTO) 32.3 % (21.0-51.0); MEAN CORPUSCULAR HGB CONC 33.5 g/dL (32.0-36.0); MEAN CORPUSCULAR VOLUME 86.5 fL (79-99); MONOCYTES # (AUTO) 0.6 K/uL (0.1-1.0); MONOCYTES % (AUTO) 5.8 % (3.0-13.0); NEUTROPHILS # (AUTO) 6.1 K/uL (1.8-7.7); NEUTROPHILS % (AUTO) 58.5 % (40.0-77.0); PLATELET COUNT (AUTO) 271 K/uL (130-400); RED CELL DISTRIBUTION WIDTH 12.6 % (11.0-15.5); WHITE BLOOD COUNT (AUTO) 10.4 K/uL (4.8-10.8)
[2024-06-28 08:18] LABS: HEMOGLOBIN A1C 9.7 % (4.0-6.0)
[2024-06-28 08:45] LABS: ALBUMIN 3.2 g/dL (3.5-5.0); BILIRUBIN,TOTAL 0.5 mg/dL (0.2-1.0); CREATININE 1.1 mg/dL (0.5-1.0); MAGNESIUM 1.5 mg/dL (1.80-2.40); POTASSIUM 3.9 mmol/L (3.5-5.1); T4 (THYROXINE) 9.5 ug/dL (4.7-13.3); THYROID STIMULATING HORMONE 8.27 uIU/mL (0.36-3.74); TOTAL PROTEIN, SERUM 8.3 g/dL (6.0-8.3)
[2024-06-29 08:06] LABS: INSULIN, RANDOM OR FASTING 36.4 uIU/mL (2.6-24.9)
== END | disposition home or self-care (01) ==
LOC: LAB 07:12
PROVIDERS: ATTEND Surgery
DX: I10 Essential (primary) hypertension (principal); E11.9 Type 2 diabetes mellitus without complications; E66.01 Morbid (severe) obesity due to excess calories; M19.91 Primary osteoarthritis, unspecified site; E78.00 Pure hypercholesterolemia, unspecified; K76.0 Fatty (change of) liver, not elsewhere classified; K21.9 Gastro-esophageal reflux disease without esophagitis
CPT/HCPCS: 36415; 71045; 80053; 80061; 82306; 82607; 82746; 83036; 83525; 83540; 83735; 84207; 84425; 84436; 84443; 84446; 84481; 84590; 84630; 85025; 93005

== ENCOUNTER → 2024-06-28 | Outpatient (CLI) | payer OTHER ==
[~2024-06-28] VITALS: Ht 10.2 cm; Wt 151.8 kg
== END | disposition home or self-care (01) ==
LOC: DTH 06:59
PROVIDERS: ATTEND Surgery
DX: G47.33 Obstructive sleep apnea (adult) (pediatric) (principal); E66.01 Morbid (severe) obesity due to excess calories; E11.9 Type 2 diabetes mellitus without complications; I10 Essential (primary) hypertension; E78.00 Pure hypercholesterolemia, unspecified; K76.0 Fatty (change of) liver, not elsewhere classified; K21.9 Gastro-esophageal reflux disease without esophagitis; M19.90 Unspecified osteoarthritis, unspecified site; Z68.43 Body mass index [BMI] 50.0-59.9, adult; Z71.3 Dietary counseling and surveillance
CPT/HCPCS: 97802

== ENCOUNTER 2024-08-10 00:42 | Emergency (ER) | payer MEDICAID ==
[~2024-08-10] VITALS: Ht 162.6 cm; Wt 150.6 kg
[2024-08-10 00:43] VITALS: BP 173/88; PULSE 93; RESP 18; TEMP 97.9
--- NOTE | 2024-08-10 00:47 | NUR ---
UA CUP PROVIDED
--- NOTE | 2024-08-10 01:22 | NUR ---
PT WAS IN THE RESTROOM BUT UNABLE TO COLLECT UA AT THIS TIME
--- NOTE | 2024-08-10 01:28 | ERN ---
General Chief Complaint: Constipation Stated Complaint: CONSTIPATION Time Seen by MD: 00:46 Source: patient History of Present Illness Initial Comments PATIENT IS A 54-YEAR-OLD FEMALE COMING IN TO BE EVALUATED FOR CONSTIPATION. PATIENT STATES THAT HE HAS BEEN GOING FOR THREE DAYS. PATIENT HAS NOT BEEN ABLE TO DEFECATE FOR ABOUT THREE DAYS AND IS HERE FOR EVALUATION. ABDOMINAL PAIN GENERALIZED. Allergies: Coded Allergies: Penicillins (Verified Allergy, Unknown, 12/09/15) atropine (Unverified Allergy, Unknown, 01/26/23) Home Meds Active Scripts Ibuprofen (Ibuprofen) 600 Mg Tablet, 600 MG PO Q6H PRN for PAIN, #15 TAB Prov:LORA MAYS MD 05/26/24 Reported Medications Gabapentin (Neurontin) 300 Mg Capsule, 300 MG PO BID, CAP 05/16/23 Lisinopril (Lisinopril) 40 Mg Tablet, 40 MG PO BID, TAB 05/16/23 Hydroxyzine HCl (Hydroxyzine HCl) 25 Mg Tablet, 25 MG PO TID PRN for ANXIETY/AGITATION, TAB 01/26/23 Naproxen (Naproxen) 500 Mg Tablet, 500 MG PO BID PRN for PAIN, TAB 01/26/23 Metoprolol Succinate (Metoprolol Succinate) 100 Mg Tab.er.24h, 100 MG PO DAILY, TAB 01/26/23 Glyburide/Metformin HCl (Glyburide-Metformin 5-500 mg) 1 Each Tablet, 1 EACH PO BID, TAB 01/26/23 Trazodone HCl (Trazodone HCl) 50 Mg Tablet, 50 MG PO HS, TAB 01/26/23 Past Medical History Past Medical History: Asthma, Diabetes-Type I, Diabetes-Type II, High Cholesterol, Hypertension, TIA Medical History Other: Past medical history of insulin-dependent diabetes, hypertension, hyperlipi Past Surgical History: Hysterectomy, Cholecystectomy, Surgical History Other: Hysterectomy Family History Family History: Negative Social History Social History: Negative Female( History) History: Not Applicable Results Laboratory and Microbiology Lab and Micro Result Laboratory Tests Test 08/10/24 01:56 White Blood Count 10.9 K/uL (4.8-10.8) H Red Blood Count 4.69 MIL/uL (4.00-5.50) Hemoglobin 13.6 g/dL (12.0-16.0) Hematocrit 40.0 % (36-48) Mean Corpuscular Volume 85.3 fL (79-99) Mean Corpuscular Hemoglobin 29.0 pg (27.0-33.0) Mean Corpuscular Hemoglobin Concent 34.0 g/dL (32.0-36.0) Red Cell Distribution Width 12.8 % (11.0-15.5) Platelet Count 308 K/uL (130-400) Mean Platelet Volume 10.3 fL (7.5-10.5) Immature Granulocyte % (Auto) 0.4 % (0-1) Neutrophils (%) (Auto) 67.1 % (40.0-77.0) Lymphocytes (%) (Auto) 23.9 % (21.0-51.0) Monocytes (%) (Auto) 6.8 % (3.0-13.0) Eosinophils (%) (Auto) 1.2 % (0.0-8.0) Basophils (%) (Auto) 0.6 % (0.0-5.0) Neutrophils # (Auto) 7.3 K/uL (1.8-7.7) Lymphocytes # (Auto) 2.6 K/uL (1.0-4.8) Monocytes # (Auto) 0.7 K/uL (0.1-1.0) Eosinophils # (Auto) 0.13 K/uL (0.00-0.70) Basophils # (Auto) 0.07 K/uL (0.00-0.20) Absolute Immature Granulocyte (auto 0.04 K/uL (0-1) Nucleated Red Blood Cells 0.0 % (0.0-0.19) Sodium Level 131 mmol/L (136-145) L Potassium Level 4.7 mmol/L (3.5-5.1) Chloride Level 97 mmol/L (101-111) L Carbon Dioxide Level 27 mmol/L (21-32) Blood Urea Nitrogen 21 mg/dL (7-18) H Creatinine 1.0 mg/dL (0.5-1.0) Glomerular Filtration Rate Calc 68 mL/min (>90) Random Glucose 409 mg/dL (70-105) *H Total Calcium 9.2 mg/dL (8.5-10.1) Labs Reviewed?: Yes MDM MDM: DIFFERENTIAL DIAGNOSIS: CONSTIPATION, HYPERGLYCEMIA RATIONALE: TESTS CONSIDERED AND ORDERED SECONDARY TO SHARED DECISION MAKING INCLUDE: PREVIOUS OUTSIDE RECORDS REVIEWED: OLD ER VISITS. RISK OF COMPLICATION AND/OR MORBIDITY OR MORTALITY OF PATIENT MANAGEMENT: NONE MEDICATIONS-PER MEDICATION RECONCILIATION NEED FOR HOSPITALIZATION: PATIENT DOES NOT MEET CRITERIA FOR HOSPITALIZATION. NEED FOR EMERGENCY MAJOR/MINOR SURGERY: NO THERE ARE NO SOCIAL CONCERNS WITH THIS PATIENT. PRESCRIPTION DRUG MANAGEMENT PRESCRIPTIONS WILL INCLUDE SYMPTOMATIC CARE PATIENT'S PRIOR EXTERNAL MEDICAL RECORDS FROM OTHER ER VISITS WERE REVIEWED BY ME INDICATED. PRIOR TESTING AND RESULTS FROM PREVIOUS VISITS WERE REVIEWED. PRIOR TESTS WERE TAKEN INTO ACCOUNT WITH MEDICAL DECISION MAKING AND RESOURCE UTILIZATION, INDEPENDENT HISTORIAN/HISTORIANS WERE USED TO OBTAIN COMPLETE MEDICAL HISTORY. I INDEPENDENTLY INTERPRETED THE TEST THAT WERE PERFORMED, RESULTS WERE REVIEWED BY ME AND CONSIDERED FINDINGS ON RADIOLOGY IF ORDERED. MEDICAL MANAGEMENT AND EXAMINATION INTERPRETATION DISCUSSIONS WERE HAD BY ME WITH OTHER QUALIFIED HEALTHCARE PROFESSIONALS INDICATED FOR THE PATIENT'S CARE. PATIENT IS A 55-YEAR-OLD FEMALE COMING IN TO BE EVALUATED FOR CONSTIPATION AND ABDOMINAL DISCOMFORT. LABORATORY WORKUP DISCLOSE ELEVATED BLOOD GLUCOSE PENDING X-RAY. PER NURSING STAFF PATIENT WAS NOT FOUND IN A LOBBY. PER NURSING STAFF PATIENT ELOPED WITHOUT NOTIFYING ANYBODY. ED Course Orders Procedure Category Date Status Time Cbc With Differential LAB 08/10/24 Complete 01:26 Basic Metabolic Panel LAB 08/10/24 Complete 01: Abd 1vw RAD 08/10/24 Logged 01:26 Lactulose 20 Gm/30 Ml PHA 08/10/24 Complete Udcup (Constulose 01:30 Magnesium Citrate PHA 08/10/24 Complete (Magnesium Citrate) 01:30 Current Medications Medications (Trade) Dose Ordered Sig/Jayne Route PRN Reason Start Time Stop Time Status Last Admin Dose Admin Lactulose (Constulose 20gm/ 30ml Udcup) 20 gm ONCE ONCE PO 08/10/24 01:30 08/10/24 01:31 DC Magnesium Citrate (Magnesium Citrate) 296 ml ONCE ONCE PO 08/10/24 01:30 08/10/24 01:31 DC Vital Signs Date Time Temp Pulse Resp B/P (MAP) Pulse Ox O2 Delivery O2 Flow Rate FiO2 08/10/24 00:43 97.9 93 18 173/88 99 Room Air DX & DISP Disposition: AMA Departure Impression: Primary Impression: Abdominal pain Condition: Against Medical Advice Additional Instructions: WAS NOTIFIED BY NURSING STAFF THE PATIENT ELOPED. Referrals: ABIEL GOSS MD (PCP) Time of Disposition: 02:44 YESENIA ATKINS MD Aug 10, 2024 01:28
[2024-08-10] MEDS ORDERED: LACTULOSE 20 GM/30 ML UDCUP PO ONE (01:30)
[2024-08-10] MEDS ORDERED: MAGNESIUM CITRATE 296 ML SOLUTION PO ONE (01:30)
[2024-08-10 02:06] LABS: BASOPHILS # (AUTO) 0.07 K/uL (0.00-0.20); BASOPHILS % (AUTO) 0.6 % (0.0-5.0); EOSINOPHILS # (AUTO) 0.13 K/uL (0.00-0.70); EOSINOPHILS % (AUTO) 1.2 % (0.0-8.0); IMMATURE GRANULOCYTE ABSOLUTE 0.04 K/uL (0-1); LYMPHOCYTES # (AUTO) 2.6 K/uL (1.0-4.8); LYMPHOCYTES % (AUTO) 23.9 % (21.0-51.0); MEAN CORPUSCULAR VOLUME 85.3 fL (79-99); MONOCYTES # (AUTO) 0.7 K/uL (0.1-1.0); MONOCYTES % (AUTO) 6.8 % (3.0-13.0); NEUTROPHILS # (AUTO) 7.3 K/uL (1.8-7.7); NEUTROPHILS % (AUTO) 67.1 % (40.0-77.0); PLATELET COUNT (AUTO) 308 K/uL (130-400); RED BLOOD CELL COUNT(AUTO) 4.69 MIL/uL (4.00-5.50); RED CELL DISTRIBUTION WIDTH 12.8 % (11.0-15.5); WHITE BLOOD COUNT (AUTO) 10.9 K/uL (4.8-10.8)
[2024-08-10 02:19] LABS: POTASSIUM 4.7 mmol/L (3.5-5.1)
--- NOTE | 2024-08-10 02:23 | NUR ---
CALLED FOR X RAY, NOT IN LOBBY. NOT IN RESTROOM
== END 2024-08-10 02:52 | disposition left against medical advice (07) ==
LOC: EDH 00:42
DX: R10.84 Generalized abdominal pain (principal); E11.9 Type 2 diabetes mellitus without complications; E78.00 Pure hypercholesterolemia, unspecified; I10 Essential (primary) hypertension; J45.909 Unspecified asthma, uncomplicated; Z79.4 Long term (current) use of insulin; Z79.84 Long term (current) use of oral hypoglycemic drugs; Z79.899 Other long term (current) drug therapy; Z86.73 Personal history of transient ischemic attack (TIA), and cerebral infarction without residual deficits; Z88.0 Allergy status to penicillin; Z90.49 Acquired absence of other specified parts of digestive tract; Z90.710 Acquired absence of both cervix and uterus
CPT/HCPCS: 36415; 80048; 85025

== ENCOUNTER → 2024-08-22 | Outpatient (CLI) | payer OTHER | END | disposition home or self-care (01) | LOC: DTH 07:19 | PROVIDERS: ATTEND Surgery | DX: G47.33 Obstructive sleep apnea (adult) (pediatric) (principal); E66.01 Morbid (severe) obesity due to excess calories; E11.9 Type 2 diabetes mellitus without complications; I10 Essential (primary) hypertension; E78.00 Pure hypercholesterolemia, unspecified; K76.0 Fatty (change of) liver, not elsewhere classified; K21.9 Gastro-esophageal reflux disease without esophagitis; M19.90 Unspecified osteoarthritis, unspecified site; Z68.43 Body mass index [BMI] 50.0-59.9, adult; Z71.3 Dietary counseling and surveillance | CPT/HCPCS: 97803 ==

== ENCOUNTER → 2024-09-13 | Outpatient (CLI) | payer OTHER | END | disposition home or self-care (01) | LOC: DTH 12:46 | PROVIDERS: ATTEND Surgery | DX: E66.01 Morbid (severe) obesity due to excess calories (principal); Z71.3 Dietary counseling and surveillance; G47.33 Obstructive sleep apnea (adult) (pediatric); E11.9 Type 2 diabetes mellitus without complications; M19.91 Primary osteoarthritis, unspecified site; K76.0 Fatty (change of) liver, not elsewhere classified; K21.9 Gastro-esophageal reflux disease without esophagitis; Z68.43 Body mass index [BMI] 50.0-59.9, adult | CPT/HCPCS: 97803 ==

== ENCOUNTER → 2024-10-10 | Outpatient (CLI) | payer OTHER ==
--- NOTE | 2024-10-10 08:37 | NUR ---
BARIATRIC FOLLOW UP NOTE VISIT 5 OF 6 Wt: 337 LBS DOS: 10/10/24 Upon follow up visit, pt presents with a 7 lb wt gain. Pt reported she is frustrated with wt gain, decreased carbonation, has been drinking 64 oz of water, regular bms, included grapefruit every other day, taking MVI QD + vit. D 5,000 ius + Mg supplement, plans on getting walker, has been walking 5 mins 3 x daily 3x per week, is nervous about procedure. RD conducted 24 hr food recall. Breakfast: protein shake Lunch: chalupa + water Dinner: flour tortilla milian taco + big red RD reviewed probiotics + fiber requirements + high fiber foods, encouraged water intake, encouraged pt to decrease soft drink (even sugar free) consumption secondary to carbonation and caffeine, pt verbalized understanding. RD and pt established goals for next month: -balanced meals, add a fruit or cho source with protein shake -walking 4x per week for 15 min -increased water intake Thank you for this visit Addendum: 10/10/24 at [address] Amended: Links added.
== END | disposition home or self-care (01) ==
LOC: DTH 07:45
PROVIDERS: ATTEND Surgery
DX: E66.01 Morbid (severe) obesity due to excess calories (principal); I10 Essential (primary) hypertension; M19.91 Primary osteoarthritis, unspecified site; G47.33 Obstructive sleep apnea (adult) (pediatric); E11.9 Type 2 diabetes mellitus without complications; E78.00 Pure hypercholesterolemia, unspecified; K76.0 Fatty (change of) liver, not elsewhere classified; K21.9 Gastro-esophageal reflux disease without esophagitis; Z71.3 Dietary counseling and surveillance
CPT/HCPCS: 97803

== ENCOUNTER 2024-10-14 09:48 | Emergency (ER) | payer MEDICAID, OTHER ==
[~2024-10-14] VITALS: Ht 162.6 cm; Wt 150.6 kg
[2024-10-14 10:49] LABS: BASOPHILS # (AUTO) 0.07 K/uL (0.00-0.20); BASOPHILS % (AUTO) 0.6 % (0.0-5.0); EOSINOPHILS # (AUTO) 0.16 K/uL (0.00-0.70); EOSINOPHILS % (AUTO) 1.4 % (0.0-8.0); IMMATURE GRANULOCYTE ABSOLUTE 0.05 K/uL (0-1); LYMPHOCYTES # (AUTO) 2.5 K/uL (1.0-4.8); LYMPHOCYTES % (AUTO) 22.2 % (21.0-51.0); MEAN CORPUSCULAR HEMOGLOBIN 28.9 pg (27.0-33.0); MEAN CORPUSCULAR HGB CONC 33.4 g/dL (32.0-36.0); MEAN CORPUSCULAR VOLUME 86.4 fL (79-99); MONOCYTES # (AUTO) 0.8 K/uL (0.1-1.0); MONOCYTES % (AUTO) 6.8 % (3.0-13.0); NEUTROPHILS # (AUTO) 7.6 K/uL (1.8-7.7); NEUTROPHILS % (AUTO) 68.5 % (40.0-77.0); PLATELET COUNT (AUTO) 282 K/uL (130-400); RED BLOOD CELL COUNT(AUTO) 5.09 MIL/uL (4.00-5.50); RED CELL DISTRIBUTION WIDTH 12.3 % (11.0-15.5); WHITE BLOOD COUNT (AUTO) 11.1 K/uL (4.8-10.8)
[2024-10-14] MEDS: LACTATED RINGERS 1000ML 1,000 ML IV ONE (10:56)
[2024-10-14 10:57] LABS: APPEARANCE,URINE CLEAR (CLEAR); BILIRUBIN,URINE NEGATIVE (NEGATIVE); COLOR,URINE LIGHT-YELLOW (YELLOW); GLUCOSE, URINE (UA) >=1000 mg/dL (NEGATIVE); KETONES,URINE 5 mg/dL (NEGATIVE); LEUKOCYTE ESTERASE ,URINE NEGATIVE Leu/uL (NEGATIVE); NITRATE,URINE NEGATIVE (NEGATIVE); OCCULT BLOOD,URINE NEGATIVE (NEGATIVE); PH,URINE 6.5 (5.0-8.0); UROBILINOGEN,URINE 0.2 mg/dL (0.2-1.0)
[2024-10-14 10:58] LABS: ADD UA MICROSCOPIC YES; PROTEIN,URINE NEGATIVE (NEGATIVE)
[2024-10-14 10:59] LABS: BACTERIA,URINE FEW /HPF (None Seen); RBC,URINE 0-1 /HPF (0-1); SQUAMOUS EPITHELIAL CELL,UR RARE /HPF (0-2); WBC,URINE 0-1 /HPF (0-1)
[2024-10-14 11:02] LABS: CREATININE 0.8 mg/dL (0.5-1.0); POTASSIUM 4.6 mmol/L (3.5-5.1)
[2024-10-14 11:03] LABS: INR 0.95 (0.85-1.15); PROTHROMBIN TIME 10.3 SEC (9.6-11.6)
[2024-10-14 11:04] LABS: PARTIAL THROMBOPLASTIN TIME 24.2 SEC (26.3-35.5)
[2024-10-14 11:06] LABS: MAGNESIUM 1.9 mg/dL (1.80-2.40)
[2024-10-14 11:14] LABS: B-TYPE NATRIURETIC PEPTIDE 24 pg/mL (0-100)
--- NOTE | 2024-10-14 11:23 | HMCIMG ---
CHEST 1VW CLINICAL HISTORY: chest COMPARISON: 06/28/2024 TECHNIQUE: Single view of the chest was obtained. FINDINGS: Lungs are clear. The cardiac size and mediastinum are unremarkable. The bony structures are within normal limits. IMPRESSION: No acute cardiopulmonary process identified.
[2024-10-14] MEDS: mecliZINE HCL 25 MG TABLET PO ONE (11:43)
[2024-10-14] MEDS: dexaMETHasone SOD PHOSPHATE 4 MG/ML 1ML VIAL IM ONE (11:43)
[2024-10-14 11:58] VITALS: BP 161/82; PULSE 85; RESP 16; TEMP 97.5; O2SAT 97
[2024-10-14] MEDS ORDERED: LORA10TA7 PO (12:01)
[2024-10-14] MEDS ORDERED: FLUT9.9S NS (12:01)
[2024-10-14] MEDS ORDERED: MECL-262 PO (12:01)
[2024-10-14] MEDS ORDERED: CLIN-141 PO (12:01)
--- NOTE | 2024-10-14 12:02 | ERN ---
General Chief Complaint: Dizzy/Light Headed Stated Complaint: DIZZINESS Time Seen by MD: 09:51 Source: patient History of Present Illness Initial Comments Patient is a 54-year-old female coming in to be evaluated for URI symptoms. Some of the URI symptoms include nasal congestion left ear congestion and dizziness. Patient states that the symptoms began earlier today. Allergies: Coded Allergies: Penicillins (Verified Allergy, Unknown, 12/09/15) atropine (Unverified Allergy, Unknown, 01/26/23) Home Meds Active Scripts Ibuprofen (Ibuprofen) 600 Mg Tablet, 600 MG PO Q6H PRN for PAIN, #15 TAB Prov:LORA MAYS MD 05/26/24 Reported Medications Gabapentin (Neurontin) 300 Mg Capsule, 300 MG PO BID, CAP 05/16/23 Lisinopril (Lisinopril) 40 Mg Tablet, 40 MG PO BID, TAB 05/16/23 Hydroxyzine HCl (Hydroxyzine HCl) 25 Mg Tablet, 25 MG PO TID PRN for ANXIETY/AGITATION, TAB 01/26/23 Naproxen (Naproxen) 500 Mg Tablet, 500 MG PO BID PRN for PAIN, TAB 01/26/23 Metoprolol Succinate (Metoprolol Succinate) 100 Mg Tab.er.24h, 100 MG PO DAILY, TAB 01/26/23 Glyburide/Metformin HCl (Glyburide-Metformin 5-500 mg) 1 Each Tablet, 1 EACH PO BID, TAB 01/26/23 Trazodone HCl (Trazodone HCl) 50 Mg Tablet, 50 MG PO HS, TAB 01/26/23 Past Medical History Past Medical History: Asthma, Diabetes-Type II, High Cholesterol, Hypertension Medical History Other: Past medical history of insulin-dependent diabetes, hypertension, hyperlipi Past Surgical History: Other Surgical History Other: Hysterectomy Family History Family History: Negative Social History Social History: Negative Female( History) History: Not Applicable ROS Dictation CONSTITUTIONAL: No chills, no fever, no weakness, no diaphoresis, no malaise. HEAD/FACE: No signs of trauma. EENT: No eye pain, no blurred vision, no tearing, no double vision, ear pain, no ear discharge, no nose pain, nasal congestion, no throat pain, no throat swelling, no mouth pain. RESPIRATORY: No cough, no orthopnea, no SOB, no stridor, no wheezing. CARDIOVASCULAR: No chest pain, no edema, no palpitations, no syncope. GASTROINTESTINAL/ABDOMINAL: No abdominal pain, no constipation, no diarrhea, no nausea, no vomiting. GENITOURINARY: No abnormal discharge, no dysuria, no frequent urination, no hematuria. No complaints of pain in the genitals. MUSCULOSKELETAL: No back pain, no gout, no joint pain, no joint swelling, no muscle pain, no muscle stiffness, no neck pain. INTEGUMENTARY: No change in color, no change in hair/nails, no dryness, no lesion, no lumps, no rash. NEUROLOGICAL/PSYCH: No anxiety, not depressed, no emotional problem, no headache, no numbness, no pre-existing deficit, no history of seizures, no tremors, no weakness. HEMATOLOGIC/LYMPHATIC: Not anemic, no history of blood clots, no apparent bleeding, no bruising, glands not swollen. All Systems Negative, Except as Noted. Physical Exam Physical Exam Dictation VITAL SIGNS: Reviewed. GENERAL APPEARANCE: Alert, oriented x3, no acute distress, obese. HEAD AND FACE: Non-traumatic. Left maxillary sinus congestion tenderness EYES: PERRL, pink conjunctivas, eyelid no trauma, anterior chamber clear. EARS: Pinnas intact and no signs of trauma or erythema. Ear canals clear and no discharge. TMs erythema. NOSE: No discharge, no bleeding. Bilateral nasal turbinate swelling OROPHARYNX: Mouth normal, teeth no caries, tongue pink. Pharynx clear, no erythema. Tonsils no exudates, no abscesses noted. Mucous membrane moist. NECK: Supple, non-tender, no thyromegaly, no masses, no JVD, no bruits. BREAST: Deferred. CHEST: No tenderness, no crepitus, no paradoxical movement, no retractions. LUNGS: Clear, well-ventilated, symmetric, no rales, no wheezing, no rhonchi, no stridor, good breath sounds bilaterally. HEART: Regular rate, regular rhythm, no murmur, no gallops. VASCULAR: No peripheral edema. ABDOMEN: Soft, positive bowel sounds, nondistended, no guarding, nontender, no rebound, no masses no hepatomegaly, no splenomegaly, no Francisco's sign, no hernias. RECTAL: Deferred. GENITAL: Deferred. NEUROLOGICAL: Normal speech, gross motor function intact, gross sensory function intact. MUSCULOSKELETAL: Neck nontender, full range of motion, back nontender, full range of motion. EXTREMITIES: Nontender, full range of motion. SKIN: Color pink, dry, no turgor, no rash, no lacerations, no abrasions, no contusions. LYMPHATICS: Deferred. Results Laboratory and Microbiology Lab and Micro Result Laboratory Tests Test 10/14/24 10:39 White Blood Count 11.1 K/uL (4.8-10.8) H Red Blood Count 5.09 MIL/uL (4.00-5.50) Hemoglobin 14.7 g/dL (12.0-16.0) Hematocrit 44.0 % (36-48) Mean Corpuscular Volume 86.4 fL (79-99) Mean Corpuscular Hemoglobin 28.9 pg (27.0-33.0) Mean Corpuscular Hemoglobin Concent 33.4 g/dL (32.0-36.0) Red Cell Distribution Width 12.3 % (11.0-15.5) Platelet Count 282 K/uL (130-400) Mean Platelet Volume 10.0 fL (7.5-10.5) Immature Granulocyte % (Auto) 0.5 % (0-1) Neutrophils (%) (Auto) 68.5 % (40.0-77.0) Lymphocytes (%) (Auto) 22.2 % (21.0-51.0) Monocytes (%) (Auto) 6.8 % (3.0-13.0) Eosinophils (%) (Auto) 1.4 % (0.0-8.0) Basophils (%) (Auto) 0.6 % (0.0-5.0) Neutrophils # (Auto) 7.6 K/uL (1.8-7.7) Lymphocytes # (Auto) 2.5 K/uL (1.0-4.8) Monocytes # (Auto) 0.8 K/uL (0.1-1.0) Eosinophils # (Auto) 0.16 K/uL (0.00-0.70) Basophils # (Auto) 0.07 K/uL (0.00-0.20) Absolute Immature Granulocyte (auto 0.05 K/uL (0-1) Nucleated Red Blood Cells 0.0 % (0.0-0.19) Prothrombin Time 10.3 SEC (9.6-11.6) Prothromb Time International Ratio 0.95 (0.85-1.15) Activated Partial Thromboplast Time 24.2 SEC (26.3-35.5) L Urine Color LIGHT-YELLOW (YELLOW) Urine Appearance CLEAR (CLEAR) Urine pH 6.5 (5.0-8.0) Urine Specific Solomon 1.035 (1.001-1.031) Urine Protein NEGATIVE mg/dL (NEGATIVE) Urine Glucose (UA) >=1000 mg/dL (NEGATIVE) H Urine Ketones 5 mg/dL (NEGATIVE) H Urine Occult Blood NEGATIVE (NEGATIVE) Urine Nitrate NEGATIVE (NEGATIVE) Urine Bilirubin NEGATIVE mg/dL (NEGATIVE) Urine Urobilinogen 0.2 mg/dL (0.2-1.0) Urine Leukocyte Esterase NEGATIVE [place]/uL Urine RBC 0-1 /HPF (0-1) Urine WBC 0-1 /HPF (0-1) Urine Squamous Epithelial Cells RARE /HPF (0-2) Urine Bacteria FEW /HPF (None Seen) Sodium Level 140 mmol/L (136-145) Potassium Level 4.6 mmol/L (3.5-5.1) Chloride Level 102 mmol/L (101-111) Carbon Dioxide Level 33 mmol/L (21-32) H Blood Urea Nitrogen 22 mg/dL (7-18) H Creatinine 0.8 mg/dL (0.5-1.0) Glomerular Filtration Rate Calc 89 mL/min (>90) Random Glucose 348 mg/dL (70-105) H Total Calcium 9.0 mg/dL (8.5-10.1) Magnesium Level 1.90 mg/dL (1.80-2.40) Total Creatine Kinase 96 U/L (21-232) # Troponin I High Sensitivity 4 ng/L (4-50) B-Type Natriuretic Peptide 24 pg/mL (0-100) Labs Reviewed?: Yes EKG/XRAY/US/CT/MRI EKG Comment 10/14/2024 time 10:10 a.m. Ventricular rate 90 Sinus rhythm MS [address] wave elevation or depression MDM MDM: Differential diagnosis: Sinusitis, otitis media, vertigo, dehydration, hyperglycemia Patient is a 54-year-old female coming in to be evaluated for dizziness. Upon evaluation left maxillary sinus tenderness to palpation bilateral nasal turbinate swelling, bilateral tympanic membrane erythema. Patient will be discharged with a diagnosis of sinusitis otitis media medication will be provided for symptomatic relief and sinus treatment. ED Course Orders Procedure Category Date Status Time Cbc With Differential LAB 10/14/24 Complete 10:01 Prothrombin Time With LAB 10/14/24 Complete INR 10:01 B-Type Natriuretic LAB 10/14/24 Complete Peptide 10:01 Chest 1vw RAD 10/14/24 Resulted 10:01 12 Lead Ekg Tracing- EKG 10/14/24 Logged Technical 10:01 Lactated Ringers PHA 10/14/24 Complete 1000ml (Lactated 10:30 Magnesium LAB 10/14/24 Complete 10:01 Creatine Kinase, Total LAB 10/14/24 Complete 10:01 Troponin I High LAB 10/14/24 Complete Sensitivity 10:01 Urinalysis Profile LAB 10/14/24 Complete 10:01 Partial LAB 10/14/24 Complete Thromboplastin Time 10:01 Basic Metabolic Panel LAB 10/14/24 Complete 10:01 Dexamethasone 4mg/Ml PHA 10/14/24 In Process 1ml Vial (Dexametha 12:00 Meclizine Hcl 25 Mg PHA 10/14/24 In Process (Antivert 25 Mg) 12:00 Current Medications Medications (Trade) Dose Ordered Sig/Jayne Route PRN Reason Start Time Stop Time Status Last Admin Dose Admin Dexamethasone Sodium Phosphate (dexaMETHasone 4MG/ML 1ML VIAL) 4 mg ONCE ONCE IM 10/14/24 12:00 10/14/24 12:01 10/14/24 11:43 Lactated Ringer's 1,000 ml @ 0 mls/hr ONCE ONCE IV 10/14/24 10:30 10/14/24 10:31 DC 10/14/24 10:56 Meclizine HCl (ANTIvert 25 mg) 25 mg ONCE ONCE PO 10/14/24 12:00 10/14/24 12:01 10/14/24 11:43 Vital Signs Date Time Temp Pulse Resp B/P (MAP) Pulse Ox O2 Delivery O2 Flow Rate FiO2 10/14/24 10:51 97.5 89 16 170/86 98 Room Air* 0 21 10/14/24 09:50 98.8 94 18 141/79 95 Room Air 0 DX & DISP Disposition: Discharge Departure Impression: Primary Impression: Sinusitis Additional Impressions: Otitis media, Hyperglycemia Condition: Stable Scripts Meclizine HCl (Antivert) 25 Mg Tab.chew 25 MG PO BID PRN for vertigo for 5 Days, #10 TAB.CHEW Prov: YESENIA ATKINS MD 10/14/24 Loratadine (Loratadine) 10 Mg Tablet 1 TAB PO DAILY for allergy symptoms for 30 Days, #30 TAB 0 Refills Prov: YESENIA ATKINS MD 10/14/24 Fluticasone Propionate (Flonase Allergy Relief) 50 Mcg/Actuation [place].susp 2 SPRAY NS DAILY for 30 Days, #60 ML 0 Refills Prov: YESENIA ATKINS MD 10/14/24 Clindamycin HCl (Clindamycin HCl) 300 Mg Capsule 1 CAP PO TID for 10 Days, #30 CAP 0 Refills Prov: YESENIA ATKINS MD 10/14/24 Additional Instructions: FOLLOW-UP WITH PRIMARY CARE PROVIDER IN 1 TO 2 DAYS. TAKE MEDICATIONS DIRECTED HERE IN THE EMERGENCY ROOM. OKAY TO CONTINUE HOME MEDICATIONS UNLESS OTHERWISE DISCUSSED DURING YOUR VISIT IN THE EMERGENCY ROOM TODAY. RETURN TO YOUR NEAREST EMERGENCY ROOM IF SYMPTOMS WORSEN OR IF THERE IS NO IMPROVEMENT. CALL 911 IF YOU NEED IMMEDIATE ASSISTANCE. TAKE TYLENOL [id number] NEEDED AND IF NO CONTRAINDICATIONS ARE PRESENT. INCREASE ORAL HYDRATION. A WOUND CULTURE OR URINE CULTURE WAS ORDERED HERE IN THE EMERGENCY ROOM DEPARTMENT PLEASE FOLLOW-UP WITH PRIMARY CARE PROVIDER AND ADVISE THEM TO GET REPEAT PORTS FROM OUR FACILITY. IF YOU HAD ANY FAN WRAP/SPLINTS THAT WERE APPLIED HERE, PLEASE DO NOT REMOVE THEM UNTIL YOU SEE YOUR PRIMARY CARE OR SPECIALTY. Referrals: Referrals: ABIEL GOSS MD (PCP) Time of Disposition: 12:00 YESENIA ATKINS MD Oct 14, 2024 12:02
--- NOTE | 2024-10-14 17:27 | EKG ---
[facility] Test Date: 2024-10-14 Test Time: 10:10:18 Pat Name: TJ TALAMANTES Department: ED Room: Gender: F [employer]worker [employer]: [id number] Requested By: YESENIA ATKINS Order Number: [id number] Reading MD: Juan Dos Santos Measurements Intervals [place] Rate: 90 P: 54 VA: 187 QRS: -17 QRSD: 103 T: 52 QT: 383 QTc: 470 Interpretive Statements Sinus rhythm LVH with secondary repolarization abnormality Compared to ECG 06/28/2024 07:48:52 Early repolarization now present Electronically Signed On 10-14-2024 17:49:00 TENANT RELATIONS COORDINATOR by Juan Dos Santos Please click the below link to view image of tracing.
== END 2024-10-14 12:04 | disposition home or self-care (01) ==
LOC: EDH 09:48
DX: J32.9 Chronic sinusitis, unspecified (principal); H66.92 Otitis media, unspecified, left ear; E11.65 Type 2 diabetes mellitus with hyperglycemia; E78.00 Pure hypercholesterolemia, unspecified; I10 Essential (primary) hypertension; J45.909 Unspecified asthma, uncomplicated; Z79.4 Long term (current) use of insulin; Z79.84 Long term (current) use of oral hypoglycemic drugs; Z79.899 Other long term (current) drug therapy; Z88.0 Allergy status to penicillin; Z90.710 Acquired absence of both cervix and uterus
CPT/HCPCS: 99285; 96360; 71045; 82550; 83735; 84484; 80048; 83880; 85025; 85610; 85730; 81001; 36415; 93005; 96372; J1100; J7120

== ENCOUNTER 2024-10-25 12:28 | Emergency (ER) | payer MEDICAID ==
[~2024-10-25] VITALS: Ht 162.6 cm; Wt 150.6 kg
[~2024-10-25 12:28] MED LIST changes: +CLIN-141 PO; +FLUT9.9S NS; +LORA10TA7 PO; +MECL-262 PO
[2024-10-25] MEDS: ketOROlac 15MG/ML VIAL (15MG/ML) IM ONE (13:34)
--- NOTE | 2024-10-25 13:34 | HMCIMG ---
TOE(S) 2+VWS LT HISTORY: Status post fall COMPARISON: None TECHNIQUE: 3 images of left toes were obtained. FINDINGS: There is no acute displaced fracture or dislocation. There is soft tissue swelling. Nondisplaced fracture cannot be excluded. Degenerative changes are seen. IMPRESSION: 1. Findings as described above.
[2024-10-25] MEDS ORDERED: MELO-108 PO (13:35)
--- NOTE | 2024-10-25 13:36 | ERN ---
General Chief Complaint: Mechanical Fall Stated Complaint: FALL,HIT BACK OF HEAD,PAIN ON SHOULDER,NECK,BOTH K Time Seen by MD: 12:33 History of Present Illness Initial Comments 54-year-old female, morbidly obese, presents for a mechanical fall. She reports she lost her balance she fell onto her abdomen into her left side. She complains of left great toe pain left knee pain left shoulder pain the fell with pain and left-sided rib pain. No respiratory distress. She not hit her head or lose consciousness. No other complaints. She is ambulatory. Allergies: Coded Allergies: Penicillins (Verified Allergy, Unknown, 12/09/15) atropine (Unverified Allergy, Unknown, 01/26/23) Home Meds Active Scripts Meclizine HCl (Antivert) 25 Mg Tab.chew, 25 MG PO BID PRN for vertigo for 5 Days, #10 TAB.CHEW Prov:YESENIA ATKINS MD 10/14/24 Loratadine (Loratadine) 10 Mg Tablet, 1 TAB PO DAILY for allergy symptoms for 30 Days, #30 TAB 0 Refills Prov:YESENIA ATKINS MD 10/14/24 Fluticasone Propionate (Flonase Allergy Relief) 50 Mcg/Actuation [place].susp, 2 SPRAY NS DAILY for 30 Days, #60 ML 0 Refills Prov:YESENIA ATKINS MD 10/14/24 Clindamycin HCl (Clindamycin HCl) 300 Mg Capsule, 1 CAP PO TID for 10 Days, #30 CAP 0 Refills Prov:YESENIA ATKINS MD 10/14/24 Ibuprofen (Ibuprofen) 600 Mg Tablet, 600 MG PO Q6H PRN for PAIN, #15 TAB Prov:LORA MAYS MD 05/26/24 Reported Medications Gabapentin (Neurontin) 300 Mg Capsule, 300 MG PO BID, CAP 05/16/23 Lisinopril (Lisinopril) 40 Mg Tablet, 40 MG PO BID, TAB 05/16/23 Hydroxyzine HCl (Hydroxyzine HCl) 25 Mg Tablet, 25 MG PO TID PRN for ANXIETY /AGITATION, TAB 01/26/23 Naproxen (Naproxen) 500 Mg Tablet, 500 MG PO BID PRN for PAIN, TAB 01/26/23 Metoprolol Succinate (Metoprolol Succinate) 100 Mg Tab.er.24h, 100 MG PO DAILY, TAB 01/26/23 Glyburide/Metformin HCl (Glyburide-Metformin 5-500 mg) 1 Each Tablet, 1 EACH PO BID, TAB 01/26/23 Trazodone HCl (Trazodone HCl) 50 Mg Tablet, 50 MG PO HS, TAB 01/26/23 Past Medical History Past Medical History: Asthma, Diabetes-Type II, High Cholesterol, Hypertension Medical History Other: Past medical history of insulin-dependent diabetes, hypertension, hyperlipi Past Surgical History: Other Surgical History Other: Hysterectomy Family History Family History: Negative Social History Social History: Negative Female( History) History: Not Applicable ROS Dictation CONSTITUTIONAL: No chills, no fever, no weakness, no diaphoresis, no malaise. HEAD/FACE: No signs of trauma. EENT: No eye pain, no blurred vision, no tearing, no double vision, no ear mesha n, no ear discharge, no nose pain, no nasal congestion, no throat pain, no throat swelling, no mouth pain. RESPIRATORY: No cough, no orthopnea, no SOB, no stridor, no wheezing. CARDIOVASCULAR: No chest pain, no edema, no palpitations, no syncope. GASTROINTESTINAL/ABDOMINAL: No abdominal pain, no constipation, no diarrhea, no nausea, no vomiting. GENITOURINARY: No abnormal discharge, no dysuria, no frequent urination, no hematuria. No complaints of pain in the genitals. MUSCULOSKELETAL: Left chest wall pain, left knee pain left great toe pain left shoulder pain INTEGUMENTARY: No change in color, no change in hair/nails, no dryness, no lesion, no lumps, no rash. NEUROLOGICAL/PSYCH: No anxiety, not depressed, no emotional problem, no headache, no numbness, no pre-existing deficit, no history of seizures, no tremors, no weakness. HEMATOLOGIC/LYMPHATIC: Not anemic, no history of blood clots, no apparent bleeding, no bruising, glands not swollen. All Systems Negative, Except as Noted. Physical Exam Physical Exam Dictation VITAL SIGNS: Reviewed. GENERAL APPEARANCE: Alert, oriented x3, no acute distress, obese. HEAD AND FACE: Non-traumatic. EYES: PERRL, pink conjunctivas, eyelid no trauma, anterior chamber clear. EARS: Pinnas intact and no signs of trauma or erythema. Ear canals clear and no discharge. TMs no erythema. NOSE: No discharge, no bleeding. OROPHARYNX: Mouth normal, teeth no caries, tongue pink. Pharynx clear, no erythema. Tonsils no exudates, no abscesses noted. Mucous membrane moist. NECK: Supple, non-tender, no thyromegaly, no masses, no JVD, no bruits. BREAST: Deferred. CHEST: No tenderness, no crepitus, no paradoxical movement, no retractions. LUNGS: Clear, well-ventilated, symmetric, no rales, no wheezing, no rhonchi, no stridor, good breath sounds bilaterally. HEART: Regular rate, regular rhythm, no murmur, no gallops. VASCULAR: No peripheral edema. ABDOMEN: Soft, positive bowel sounds, nondistended, no guarding, nontender, no rebound, no masses no hepatomegaly, no splenomegaly, no Francisco's sign, no hernias. RECTAL: Deferred. GENITAL: Deferred. NEUROLOGICAL: Normal speech, gross motor function intact, gross sensory function intact. MUSCULOSKELETAL: Neck nontender, full range of motion, back nontender, full range of motion. EXTREMITIES: Nontender, full range of motion. SKIN: Color pink, dry, no turgor, no rash, no lacerations, no abrasions, no contusions. LYMPHATICS: Deferred. MDM CC: Fall, multiple musculoskeletal complaints Historian: Patient Comorbidities: Morbidly obese, diabetes, hypertension Limitations by social determinants of health: None Vital signs are stable Differential diagnosis includes musculoskeletal type pain, fracture. Low wyatt spicion for any head injury since she had not hit her head she has no headache or vision changes, no neurologic deficits. Clinical exam she reports the most significant pains in the left toe in her left knee in her left rib area. She has clear lungs she is nontoxic in appearance She received IM Toradol in the ER Chest x-ray per my independent interpretation shows no acute fractures or abnormalities. No pneumothorax. Knee x-ray per my independent interpretation shows no fractures or abnormalities Left great toe x-ray per my independent interpretation shows no fractures or abnormalities. Likely musculoskeletal pain. We will discharged with some pain control and recommend PCP follow up as needed. Patient agrees with the plan. We will DC. ED Course Orders Procedure Category Date Status Time Knee 3vws Lt RAD 10/25/24 Taken 12:54 Toe(S) 2+Vws Lt RAD 10/25/24 Taken 12:54 Chest 1vw RAD 10/25/24 Taken 12:54 Ketorolac PHA 10/25/24 Complete Tromethamine 15mg/Ml 13:00 Current Medications Medications (Trade) Dose Ordered Sig/Jayne Route PRN Reason Start Time Stop Time Status Last Admin Dose Admin Ketorolac Tromethamine (toRADol) 15 mg ONCE ONCE IM 10/25/24 13:00 10/25/24 13:01 DC Vital Signs Date Time Temp Pulse Resp B/P (MAP) Pulse Ox O2 Delivery O2 Flow Rate FiO2 10/25/24 12:37 98.1 94 20 162/93 99 Room Air 0 DX & DISP Disposition: Discharge Departure Impression: Primary Impression: Fall Additional Impression: Musculoskeletal pain Condition: Stable Scripts Meloxicam (Meloxicam) 15 Mg Tablet 7.5 MG PO DAILY PRN for PAIN for 10 Days, #10 TAB Prov: ERASMO PRADO DO 10/25/24 Additional Instructions: There are no dangerous findings on your workup here today. Your vital signs are stable Your x-rays did not show any fractures. Your symptoms are consistent with soft tissue injury. Apply ice as needed. You can use iigz-lng-qckhxoa creams or patches such as Voltaren gel or lidocaine. I prescribed meloxicam, which is an anti-inflammatory steroid. You can take this once per day as needed for pain or discomfort. Do not mix this medication with aspirin, Motrin, naproxen. You can also take bziz-fok-karoezd Tylenol (1000 mg) up to 4 times a day as needed. Please follow up with your primary doctor if you continue with symptoms next deepika hooks Referrals: ABIEL GOSS MD (PCP) ERASMO PRADO DO Oct 25, 2024 13:36
--- NOTE | 2024-10-25 13:45 | HMCIMG ---
KNEE 3VWS LT HISTORY: Status post fall COMPARISON: None TECHNIQUE: 4 images of left knee were obtained. FINDINGS: There is no acute displaced fracture or dislocation. The study is limited due to poor positioning. Medial femorotibial joint space narrowing is seen. Degenerative changes are seen. IMPRESSION: 1. Findings as described above.
--- NOTE | 2024-10-25 13:47 | HMCIMG ---
CHEST 1VW HISTORY: Status post fall COMPARISON: 10/14/2024 FINDINGS: A frontal projection of the chest was obtained. Prominent interstitial markings are seen with possible superimposed infiltrates. The heart is normal in size. Degenerative changes are seen. IMPRESSION: 1. Prominent interstitial markings are seen with possible superimposed infiltrates.
[2024-10-25 14:00] VITALS: BP 157/89; PULSE 90; RESP 20; TEMP 98.1; O2SAT 99
== END 2024-10-25 14:07 | disposition home or self-care (01) ==
LOC: EDH 12:28
DX: M25.512 Pain in left shoulder (principal); M25.562 Pain in left knee; M79.675 Pain in left toe(s); R07.81 Pleurodynia; E11.9 Type 2 diabetes mellitus without complications; E66.01 Morbid (severe) obesity due to excess calories; E78.00 Pure hypercholesterolemia, unspecified; I10 Essential (primary) hypertension; J45.909 Unspecified asthma, uncomplicated; Z68.23 Body mass index [BMI] 23.0-23.9, adult; Z79.4 Long term (current) use of insulin; Z79.84 Long term (current) use of oral hypoglycemic drugs; Z79.899 Other long term (current) drug therapy; Z88.0 Allergy status to penicillin; Z90.710 Acquired absence of both cervix and uterus; W18.39XA Other fall on same level, initial encounter; Y93.89 Activity, other specified; Y92.89 Other specified places as the place of occurrence of the external cause; Y99.8 Other external cause status
CPT/HCPCS: 99284; 71045; 73562; 73660; 96372; J1885

== ENCOUNTER → 2024-11-13 | Outpatient (CLI) | payer OTHER ==
[~2024-11-13] MED LIST changes: +MELO-108 PO
--- NOTE | 2024-11-13 08:34 | NUR ---
FOLLOW PRE-OP/POST-OP DIETARY RECOMMENDATIONS BARIATRIC PRE-OP VISIT VISIT 6 OF 6 Wt: 340 lbs DOS: 11/13/24 present during visit. Upon follow up visit, pt presented with a 3 lb Wt gain. Pt reported she is recovering from the flu, is taking MVI QD, no carbonation, switched all products to SF, before getting sick she was doing seated exercises 10 min QD, has been looking at clear protein powders, has appointment with processing tech this month as well as with surgeon. RD reviewed educational material for pre-op and post-op diet recommendations with detailed phases of diet post-op. Pt was informed of importance of lifelong vitamin/mineral supplementation, choosing protein first during meals (pt was educated on higher protein requirements), choosing low calorie, sugar free, carbonated free and caffeine beverages. RD also informed pt on lifelong commitment to exercise and dietary recommendations for optimal success post surgery. RD encouraged getting blood work every 3 to 6 months, including B-vitamins, Pt verbalized understanding. RD informed Pt on moving around after procedure to prevent DVT, Pt verbalized understanding. Pt was encouraged to contact RD as questions arise and to attend support groups. RD provided protein supplement recommendations along with Bariatric Vitamin recommendations via graphics to patient. Pt with several questions, all of which were answered. Fair compliance suspected. Pt will benefit from outpatient bariatric dietitian follow up post procedure. Pt to follow up with PCP for labs. Thank you for this visit. Addendum: 11/13/24 at [address] Amended: Links added.
== END | disposition home or self-care (01) ==
LOC: DTH 07:34
PROVIDERS: ATTEND Surgery
DX: E11.9 Type 2 diabetes mellitus without complications (principal); E66.01 Morbid (severe) obesity due to excess calories; G47.33 Obstructive sleep apnea (adult) (pediatric); K21.9 Gastro-esophageal reflux disease without esophagitis; K76.0 Fatty (change of) liver, not elsewhere classified; M19.91 Primary osteoarthritis, unspecified site; E78.00 Pure hypercholesterolemia, unspecified
CPT/HCPCS: 97803

== ENCOUNTER → 2024-12-13 | Outpatient (CLI) | payer MEDICAID ==
[~2024-12-13] MED LIST changes: -NAPR-1023 PO; +NAPR-1194 PO
--- NOTE | 2024-12-13 10:35 | HMCIMG ---
UPPER GI SERIES History: HEARTBURN Comparison: none Contrast: barium sulfate suspension TECHNIQUE: EXAMINATION IS DONE UNDER FLUOROSCOPIC CONTROL, WITH FLUOROSCOPIC SPOTS OBTAINED. FINDINGS: Under fluoroscopic evaluation, the patient's esophagus demonstrates normal course, contour and caliber. Normal motility is seen. There is gastroesophageal reflux to the thoracic inlet level. The stomach, duodenal bulb, duodenal C-loop, and visualized proximal small bowel show no extrinsic compression, fixed filling defect, ulcerations or abnormalities in mucosal pattern. No tumor is identified. There is no evidence of malrotation. The ligament of Treitz is in its expected location. There is no gastric outlet obstruction. There is no extravasation. There is no evidence of malrotation. IMPRESSION: Spontaneous gastroesophageal reflux to the thoracic inlet level.
== END | disposition home or self-care (01) ==
LOC: RAH 09:30
PROVIDERS: ATTEND Pediatrics
DX: K21.9 Gastro-esophageal reflux disease without esophagitis (principal); R12 Heartburn
CPT/HCPCS: 74240

== ENCOUNTER → 2024-12-27 | Outpatient (CLI) | payer MEDICAID ==
[2024-12-27 10:14] LABS: ABG HCO3 26.6 mmol/L (21.0-28.0); ABG OXYGEN SATURATION 96.7 % (94.0-98.0); ABG PCO2 42 mmHg (32-45); ABG PH 7.425 (7.350-7.450); PO2, ARTERIAL BG 86.5 mmHg (83.0-108.0); VENT MODE, BG RA (ROOM AIR)
[2024-12-27 10:26] LABS: HEMOGLOBIN A1C 9.8 % (4.0-6.0)
[2024-12-27 10:57] LABS: ALBUMIN 3.1 g/dL (3.5-5.0); BILIRUBIN,TOTAL 0.3 mg/dL (0.2-1.0); CREATININE 0.8 mg/dL (0.5-1.0); POTASSIUM 4.8 mmol/L (3.5-5.1); TOTAL PROTEIN, SERUM 8.2 g/dL (6.0-8.3)
== END | disposition home or self-care (01) ==
LOC: LAB 09:21
PROVIDERS: ATTEND Surgery
DX: E66.01 Morbid (severe) obesity due to excess calories (principal); E11.9 Type 2 diabetes mellitus without complications; Z68.43 Body mass index [BMI] 50.0-59.9, adult; Z79.899 Other long term (current) drug therapy
CPT/HCPCS: 36415; 36600; 80053; 82607; 82803; 83036; 84425; 84446; 84590; 84597

== ENCOUNTER 2025-07-30 21:55 | Emergency (ER) | payer MEDICAID ==
[~2025-07-30] VITALS: Ht 162.6 cm; Wt 158.3 kg
[~2025-07-30 21:55] MED LIST changes: +IBUP-1492 PO; -IBUP-2070 PO; +LISI40TA15 PO; -LISI40TA9 PO; +MACR100 PO
[2025-07-30 23:21] LABS: IMMATURE GRANULOCYTE ABSOLUTE 0.06 K/uL (0-1); NUCLEATED RED BLOOD CELLS 0.0 % (0.0-0.19); PLATELET COUNT (AUTO) 273 K/uL (130-400); RED BLOOD CELL COUNT(AUTO) 4.56 MIL/uL (4.00-5.50); RED CELL DISTRIBUTION WIDTH 12.7 % (11.0-15.5); WHITE BLOOD COUNT (AUTO) 10.7 K/uL (4.8-10.8)
[2025-07-30 23:30] LABS: CREATININE 1.1 mg/dL (0.5-1.0); GLOMERULAR FILTR. RATE CALC 60.0 mL/min (>90); SODIUM SERUM 134.0 mmol/L (136-145); UREA NITROGEN, BLOOD 22.0 mg/dL (7-18)
[2025-07-30 23:33] LABS: GLUCOSE,RANDOM 434.0 mg/dL (70-105)
--- NOTE | 2025-07-30 23:33 | HMCIMG ---
EXAM: CR Chest, 1 View. CLINICAL HISTORY: breast pain right COMPARISON: Xray chest (04 july 2025). FINDINGS: LUNGS: The lungs show no infiltrate or other acute finding. PLEURAL SPACES: No pleural effusion or pneumothorax. MEDIASTINUM: Cardiac size and mediastinal contours within normal limits. BONES: No aggressive appearing osseous lesion seen. IMPRESSION: No acute cardiopulmonary pathology is evident. Overall findings similar to Xray chest (04 july 2025). /[place]
[2025-07-30 23:40] LABS: APPEARANCE,URINE CLEAR (CLEAR); GLUCOSE, URINE (UA) >=1000 mg/dL (NEGATIVE); LEUKOCYTE ESTERASE ,URINE NEGATIVE Leu/uL (NEGATIVE); NITRATE,URINE NEGATIVE (NEGATIVE); OCCULT BLOOD,URINE NEGATIVE (NEGATIVE)
[2025-07-30 23:41] LABS: ADD UA MICROSCOPIC YES
[2025-07-30 23:42] LABS: SQUAMOUS EPITHELIAL CELL,UR RARE /HPF (0-2)
--- NOTE | 2025-07-30 23:45 | NUR ---
ASSUMED PT CARE
[2025-07-30] MEDS: 0.9%NACL 1000ML 1,000 ML IV ONE (23:50)
--- NOTE | 2025-07-30 23:55 | ERN ---
ED Note History of Present Illness Stated Complaint: C/O PAIN TO RT BREAST W/ABD PAIN, RT LEG PAIN Chief Complaint: Multiple Complaints Time Seen by MD: 22:23 Dictation: This is a 55-year-old with extreme obesity and a BMI of 60 comes into the ER complaining of right-sided breast pain. She apparently started experiencing some mild achiness in the right anterior axillary area of the breast. The pain continued and radiates to the nipple and she has a squeezing sensation. No fever chills or rigors. No erythema redness. No nipple discharge. No induration. She does not recall any obvious blunt injury or lifting any heavy items. She also stated that she has a little bit of upper abdominal pain. And also leg pains. No history of any zoster Temperature 98.2 pulse 94 respirations 20 blood pressure 172/78 with a pulse oximetry of 99% on room air Chronic medical problems include osteoarthritis, diabetes mellitus type 2 insulin requiring, hypertension, hypercholesterolemia and previous history of cholecystectomy. Allergies: Coded Allergies: Penicillins (Verified Allergy, Unknown, 12/09/15) atropine (Unverified Allergy, Unknown, 01/26/23) Home Meds Active Scripts Nitrofurantoin/Nitrofuran Mac (Macrobid) 100 Mg Cap, 1 CAP PO BID for 7 Days, #14 CAP 0 Refills Prov:ABIEL VASQUEZ 07/05/25 Meloxicam (Meloxicam) 15 Mg Tablet, 7.5 MG PO DAILY PRN for PAIN for 10 Days, #10 TAB Prov:ERASMO PRADO DO 10/25/24 Meclizine HCl (Antivert) 25 Mg Tab.chew, 25 MG PO BID PRN for vertigo for 5 Days, #10 TAB.CHEW Prov:YESENIA ATKINS MD 10/14/24 Loratadine (Loratadine) 10 Mg Tablet, 1 TAB PO DAILY for allergy symptoms for 30 Days, #30 TAB 0 Refills Prov:YESENIA ATKINS MD 10/14/24 Fluticasone Propionate (Flonase Allergy Relief) 50 Mcg/Actuation [place].susp, 2 SPRAY NS DAILY for 30 Days, #60 ML 0 Refills Prov:YESENIA ATKINS MD 10/14/24 Clindamycin HCl (Clindamycin HCl) 300 Mg Capsule, 1 CAP PO TID for 10 Days, #30 CAP 0 Refills Prov:YESENIA ATKINS MD 10/14/24 Ibuprofen (Ibuprofen) 600 Mg Tablet, 600 MG PO Q6H PRN for PAIN, #15 TAB Prov:LORA MAYS MD 05/26/24 Reported Medications Gabapentin (Neurontin) 300 Mg Capsule, 300 MG PO BID, CAP 05/16/23 Lisinopril (Lisinopril) 40 Mg Tablet, 40 MG PO BID, TAB 05/16/23 Hydroxyzine HCl (Hydroxyzine HCl) 25 Mg Tablet, 25 MG PO TID PRN for ANXIETY/AGITATION, TAB 01/26/23 Naproxen (Naproxen) 500 Mg Tablet, 500 MG PO BID PRN for PAIN, TAB 01/26/23 Metoprolol Succinate (Metoprolol Succinate) 100 Mg Tab.er.24h, 100 MG PO DAILY, TAB 01/26/23 Glyburide/Metformin HCl (Glyburide-Metformin 5-500 mg) 1 Each Tablet, 1 EACH PO BID, TAB 01/26/23 Trazodone HCl (Trazodone HCl) 50 Mg Tablet, 50 MG PO HS, TAB 01/26/23 Past Medical History Past Medical History: Arthritis, Diabetes-Type II, High Cholesterol, Hypertension Additional Past Medical Hx: Past medical history of insulin-dependent diabetes, hypertension, hyperlipi Surgical History: Hysterectomy, Cholecystectomy, Surgical History Other: Hysterectomy Family History: Negative Social History: Negative History: Not Applicable RN Note Reviewed/Agreed w/PFSH: Yes Review of System Dictation Constitutional: Negative for fever,chills, and weight loss Eyes: Negative for injury, pain,redness, and discharge ENT: Negative for injury,pain or swelling Cardiovascular: Negative for chest pain, palpitations, and edema pain in the right breast Respiratory: Negative for shortness of breath, cough, and wheezing, Abdomen/GI: Positive for upper abdominal pain, nausea, denied vomiting, diarrhea, and constipation Back: Negative for injury and pain : Negative for injury, bleeding and discharge MS/Extremity: Negative for injury and deformity Skin: Negative for rash, and discoloration Neuro: Negative for headache, weakness, numbness, tingling, and seizure Psych: Negative for suicide ideation, homicidal ideation, and hallucinations Initial Vital Sign VS Vital Signs Date Time Temp Pulse Resp B/P (MAP) Pulse Ox O2 Delivery O2 Flow Rate FiO2 07/30/25 21:58 98.2 94 20 172/78 99 Room Air 07/30/25 23:44 0 21 Physical Exam Dictation General: awake, alert, NAD extreme obesity Head/Face: Normocephalic, atraumatic Eyes: PERRL, EOMI, vision at baseline ENT: oral cavity clear, TMs clear, no signs of infection Neck: Trachea midline, supple, no nuchal rigidity Cardiovascular: RRR, normal S1/S2, No MRGs, no JVD Respiratory: CTAB, no respiratory distress, No rales or wheezes Abdomen: Soft, non-tender, non-distended, normal bowel sounds, no guarding or rebound. Skin: Warm, dry, normal turgor, no rash Breast-normal appearance for her extreme obesity no erythema no nipple discharge no induration or mass lesions. Mild tenderness with palpation. MS/Extremity: Pulses equal, no cyanosis, neurovascular intact, FROM Neuro: COAx4, GCS 15, strength 5/5, CN 2-12 intact, normal cerebellar exam, normal gait, Psych: Normal behavior, mood, and affect normal Extremities-trace edema without any palpable cords, Homans sign is negative Results (Laboratory/Radiology) Laboratory/Radiology Laboratory Tests Test 07/30/25 22:09 07/30/25 23:10 07/31/25 00:42 Urine Color COLORLESS (YELLOW) Urine Appearance CLEAR (CLEAR) Urine pH 6.0 (5.0-8.0) Urine Specific [place] 1.031 (1.001-1.031) Urine Protein NEGATIVE mg/dL (NEGATIVE) Urine Glucose (UA) >=1000 mg/dL (NEGATIVE) H Urine Ketones NEGATIVE mg/dL (NEGATIVE) Urine Occult Blood NEGATIVE (NEGATIVE) Urine Nitrate NEGATIVE (NEGATIVE) Urine Bilirubin NEGATIVE mg/dL (NEGATIVE) Urine Urobilinogen 0.2 mg/dL (0.2-1.0) Urine Leukocyte Esterase NEGATIVE [place]/uL Urine RBC 2-5 /HPF (0-1) H Urine WBC 2-5 /HPF (0-1) H Urine Squamous Epithelial Cells RARE /HPF (0-2) Urine Bacteria None /HPF (None Seen) White Blood Count 10.7 K/uL (4.8-10.8) Red Blood Count 4.56 MIL/uL (4.00-5.50) Hemoglobin 13.2 g/dL (12.0-16.0) Hematocrit 40.3 % (36-48) Mean Corpuscular Volume 88.4 fL (79-99) Mean Corpuscular Hemoglobin 28.9 pg (27.0-33.0) Mean Corpuscular Hemoglobin Concent 32.8 g/dL (32.0-36.0) Red Cell Distribution Width 12.7 % (11.0-15.5) Platelet Count 273 K/uL (130-400) Mean Platelet Volume 10.0 fL (7.5-10.5) Immature Granulocyte % (Auto) 0.6 % (0-1) Neutrophils (%) (Auto) 56.5 % (40.0-77.0) Lymphocytes (%) (Auto) 34.9 % (21.0-51.0) Monocytes (%) (Auto) 5.3 % (3.0-13.0) Eosinophils (%) (Auto) 2.1 % (0.0-8.0) Basophils (%) (Auto) 0.6 % (0.0-5.0) Neutrophils # (Auto) 6.1 K/uL (1.8-7.7) Lymphocytes # (Auto) 3.7 K/uL (1.0-4.8) Monocytes # (Auto) 0.6 K/uL (0.1-1.0) Eosinophils # (Auto) 0.23 K/uL (0.00-0.70) Basophils # (Auto) 0.06 K/uL (0.00-0.20) Absolute Immature Granulocyte (auto 0.06 K/uL (0-1) Nucleated Red Blood Cells 0.0 % (0.0-0.19) Sodium Level 134 mmol/L (136-145) L Potassium Level 4.7 mmol/L (3.5-5.1) Chloride Level 98 mmol/L (101-111) L Carbon Dioxide Level 32 mmol/L (21-32) Blood Urea Nitrogen 22 mg/dL (7-18) H Creatinine 1.1 mg/dL (0.5-1.0) H Glomerular Filtration Rate Calc 60 mL/min (>90) Random Glucose 434 mg/dL (70-105) *H Total Calcium 9.0 mg/dL (8.5-10.1) Whole Blood Glucose 339 MG/DL (70-110) H Labs Reviewed?: Yes ED Course ED Course Orders Procedure Category Date Status Time Cbc With Differential LAB 07/30/25 Complete 22:37 Basic Metabolic Panel LAB 07/30/25 Complete 22:37 Urinalysis Profile LAB 07/30/25 Complete 22:37 Chest 1vw RAD 07/30/25 Resulted 22:37 Ketorolac PHA 07/31/25 Complete Tromethamine 30mg/Ml 00:00 0.9%Nacl 1000ml (Ns PHA 07/31/25 Complete 1000ml) 00:00 Ketorolac PHA 07/31/25 Complete Tromethamine 30mg/Ml 00:00 Ketorolac PHA 07/30/25 Complete Tromethamine 30mg/Ml 23:49 Random Accucheck At CPOE 07/31/25 Transmitted Bedside 01:08 Current Medications Medications (Trade) Dose Ordered Sig/Jayne Route PRN Reason Start Time Stop Time Status Last Admin Dose Admin Ketorolac Tromethamine (toRADol) 30 mg ONCE ONCE IM 07/31/25 00:00 07/30/25 23:46 DC Ketorolac Tromethamine (toRADol) 30 mg ONCE ONCE IVP 07/31/25 00:00 07/31/25 00:01 DC 07/30/25 23:51 Ketorolac Tromethamine (toRADol) 30 mg STK-MED ONCE .ROUTE 07/30/25 23:49 07/30/25 23:49 DC Sodium Chloride 1,000 ml @ 0 mls/hr ONCE ONCE IV 07/31/25 00:00 07/31/25 00:01 DC 07/30/25 23:50 Vital Signs Date Time Temp Pulse Resp B/P (MAP) Pulse Ox O2 Delivery O2 Flow Rate FiO2 07/30/25 23:44 98.4 88 18 170/66 99 Room Air* 0 21 07/30/25 21:58 98.2 94 20 172/78 99 Room Air Medical Decision Making MDM Differential diagnosis: Musculoskeletal pain, mastitis, hormonal changes, costochondritis This is a 55-year-old with extreme obesity and a BMI of 60 comes into the ER complaining of right-sided breast pain. She apparently started experiencing some mild achiness in the right anterior axillary area of the breast. The pain continued and radiates to the nipple and she has a squeezing sensation. No fever chills or rigors. No erythema redness. No nipple discharge. No indur ation. She does not recall any obvious blunt injury or lifting any heavy items. She also stated that she has a little bit of upper abdominal pain. And also leg pains. Patient stated that she has not been able to control her sugars. Was to be on insulin and sliding scale and takes Toujeo also. Temperature 98.2 pulse 94 respirations 20 blood pressure 172/78 with a pulse oximetry of 99% on room air Chronic medical problems include osteoarthritis, diabetes mellitus type 2 insulin requiring, hypertension, hypercholesterolemia and previous history of cholecystectomy. 11:40 p.m. labs reviewed CBC is with a normal limits. BNP 7 shows a sodium of 134 chloride 98 potassium 4.7 BUN and creatinine are 22 and 1.1 with a glucose of 434 IV hydration aggressively and insulin administration. We will also give Toradol for the breast pain Rationale: Tests considered and ordered secondary to shared decision making include: Previous outside records reviewed: Old ER visits. Risk of complication and/or morbidity or mortality of patient management: None Medications-Per medication reconciliation Need for hospitalization: Patient does not meet criteria for hospitalization. Need for emergency major/minor surgery: No There are no social concerns with this patient. Prescription drug management Prescriptions will include symptomatic care Patient's prior external medical records from other ER visits were reviewed by me as indicated. Prior testing and results from previous visits were reviewed. Prior tests were taken into account with medical decision making and resource utilization, independent historian/historians were used to obtain complete medical history. I independently interpreted the test that were performed, results were reviewed by me and considered findings on radiology if ordered. Medical management and examination interpretation discussions were had by me with other qualified healthcare professionals as indicated for the patient's care. Problem List Problem List: (1) Morbid obesity with BMI of 50.0-59.9, adult (2) Diabetes mellitus with hyperglycemia (3) Mild dehydration (4) Musculoskeletal pain DX & DISP Disposition: Discharge Departure Impression: Primary Impression: Diabetes mellitus with hyperglycemia Additional Impressions: Mild dehydration, Morbid obesity with BMI of 50.0- 59.9, adult, Musculoskeletal pain Condition: Stable Additional Instructions: Patient and the caregiver have been informed of all the diagnostic tests and the imaging conducted during the today's visit to the emergency room and has verbalized understanding of the results I have personally reviewed and interpreted all diagnostic exams performed here in the ER today as well as the vital signs documented by the nursing staff. The patient is now being discharged to home and should follow up with the primary care physician or the specialist as directed by the ER staff. Follow-up with primary care provider in 1 to 2 days. Take medications as directed here in the emergency room. Okay to continue home medications unless otherwise discussed during your visit in the emergency room today. Return to your nearest emergency room if symptoms worsen or if there is no improvement. Call 911 if you need immediate assistance. Take Tylenol or Motrin [id number] as needed and if no contraindications are present. Increase oral hydration. A wound culture or urine culture was ordered here in the emergency room department please follow-up with primary care provider and advise them to get repeat ports from our facility. If you had any Carlos Manuel wrap/splints that were applied here, please do not remove them until you see your primary care or specialty. Referrals: ABIEL GOSS MD (PCP) PAIGE KAUFFMAN MD Jul 30, 2025 23:55
[2025-07-31 01:55] VITALS: BP 145/55; PULSE 80; RESP 18; TEMP 98.4; O2SAT 99
== END 2025-07-31 01:59 | disposition home or self-care (01) ==
LOC: EDH 21:55
DX: E11.65 Type 2 diabetes mellitus with hyperglycemia (principal); E86.0 Dehydration; E66.01 Morbid (severe) obesity due to excess calories; E78.00 Pure hypercholesterolemia, unspecified; I10 Essential (primary) hypertension; M19.90 Unspecified osteoarthritis, unspecified site; Z79.4 Long term (current) use of insulin; Z79.84 Long term (current) use of oral hypoglycemic drugs; Z79.899 Other long term (current) drug therapy; Z88.0 Allergy status to penicillin; Z90.49 Acquired absence of other specified parts of digestive tract; Z90.710 Acquired absence of both cervix and uterus; Z68.43 Body mass index [BMI] 50.0-59.9, adult
CPT/HCPCS: 99284; 96374; 71045; 80048; 85025; 82948 ×4; 81001; 36415; 96375; J1885; J7030; J1815

== ENCOUNTER → 2025-08-21 | Outpatient (CLI) | payer OTHER ==
[~2025-08-21] MED LIST changes: -CLIN-141 PO; -FLUT9.9S NS; +GABA-1405 PO; -GABA300C PO; +HYDR25TA PO; -IBUP-1492 PO; +INSU100C6 SQ; +LEVO50CA5 PO; -LISI40TA15 PO; -LORA10TA7 PO; -MACR100 PO; -MECL-262 PO; -MELO-108 PO; -METO-409 PO; -NAPR-1194 PO; +TRAMADOL 50MG PO
--- NOTE | 2025-08-21 09:37 | NUR ---
BARIATRIC FOLLOW UP NOTE VISIT 7 OF 12 Wt: 345 LBS DOS: Upon follow up visit, pt presents with a 5 lb wt gain. Pt reported she cut off carbonation, w/ diarrhea after meals, with dexacon, has not seen an lokie driver, has tried to lose with on her own since 11/13/24, did not have procedure due to family issues, has been doing seated exercises 3 x per week for 15-20 mins no strengthen bands, PCP is not aware of her pursuing procedure again, had flu and COVID since June and July. RD conducted 24 hr food recall. Breakfast: skipped Lunch: 2 boiled eggs+ 1/2 avocado + water Dinner: pozole + water RD reviewed simple CHO and complex CHO intake, reviewed labs and encouraged Pt to f/u with PCP, reviewed pre-op and post op nutrition recommendations, encouraged Pt to not skip meals to aid BG control, encouraged pt to decrease soft drink (even sugar free) consumption secondary to carbonation and caffeine, pt verbalized understanding. RD and pt established goals for next month: -continue MVI -vit. D 5,000 4x per week or f/u with PCP -walking 10 mins 4 x per week Thank you for this visit Addendum: 08/21/25 at [address] Amended: Links added.
== END | disposition home or self-care (01) ==
LOC: DTH 08:42
PROVIDERS: ATTEND Surgery
DX: G47.33 Obstructive sleep apnea (adult) (pediatric) (principal); E66.01 Morbid (severe) obesity due to excess calories; E11.9 Type 2 diabetes mellitus without complications; K76.0 Fatty (change of) liver, not elsewhere classified; K21.9 Gastro-esophageal reflux disease without esophagitis; E78.00 Pure hypercholesterolemia, unspecified
CPT/HCPCS: 97803

== ENCOUNTER → 2025-09-24 | Outpatient (CLI) | payer OTHER | END | disposition home or self-care (01) | LOC: DTH 08:21 | PROVIDERS: ATTEND Surgery | DX: G47.33 Obstructive sleep apnea (adult) (pediatric) (principal); E66.01 Morbid (severe) obesity due to excess calories; E11.9 Type 2 diabetes mellitus without complications; E78.00 Pure hypercholesterolemia, unspecified; K76.0 Fatty (change of) liver, not elsewhere classified; K21.9 Gastro-esophageal reflux disease without esophagitis | CPT/HCPCS: 97803 ==

== ENCOUNTER → 2025-10-22 | Outpatient (CLI) | payer MEDICAID, OTHER | END | disposition home or self-care (01) | LOC: DTH 08:30 | PROVIDERS: ATTEND Surgery | DX: E66.01 Morbid (severe) obesity due to excess calories (principal); G47.33 Obstructive sleep apnea (adult) (pediatric); E66.3 Overweight; K21.9 Gastro-esophageal reflux disease without esophagitis; K76.0 Fatty (change of) liver, not elsewhere classified; E78.00 Pure hypercholesterolemia, unspecified; E11.9 Type 2 diabetes mellitus without complications; Z71.3 Dietary counseling and surveillance | CPT/HCPCS: 97803 ==